=== PATIENT | male | born 1965 | race Caucasian/White ===

== ENCOUNTER 2022-09-06 09:42 | Outpatient (REF) | payer MEDICAID, SELFPAY ==
[2022-09-06 10:34] LABS: MANUAL DIFF FLAG NO
[2022-09-06 10:46] LABS: Basophils Percent Auto 0.5 % (0-2); Eosinophils Percent Auto 0.7 % (0-4); Hematocrit 45.9 % (42.0-52.0); Hemoglobin 15.9 g/dl (14.0-18.0); Imm Gran Abs Auto 0.01 X10*3/uL (0.00-0.03); Imm Gran Pct Auto 0.2 % (0.0-0.4); Lymphocytes Absolute Auto 1.1 X10*3/uL (1.2-4.9); Lymphocytes Percent Auto 24.9 % (20-40); Mean Corpuscular HGB Conc 34.6 g/dl (31.0-36.0); Mean Corpuscular Hemoglobin 32.1 pg (27.0-33.0); Mean Corpuscular Volume 92.7 fL (80.0-98.0); Mean Platelet Volume 10.9 fL (9.4-12.4); Monocytes Absolute Auto 0.3 X10*3/uL (0.1-1.2); Monocytes Percent Auto 7.6 % (2-11); Neutrophils Absolute Auto 2.9 x10*3/uL (2.0-8.3); Neutrophils Percent Auto 66.1 % (45-73); Platelet Count 199 X10*3/uL (160-400); Red Blood Count 4.95 X10*6/uL (4.60-5.80); Red Cell Distribution Width 12.3 % (11.0-16.0); White Blood Count 4.3 X10*3/uL (4.8-10.8)
[2022-09-06 11:27] LABS: Alanine Aminotransferase 25 U/L (0-40); Albumin Level 4.3 g/dL (3.5-5.0); Alkaline Phosphatase 72 U/L (39-117); Anion Gap 12 (12-20); Aspartate Amino Transferase 17 U/L (5-37); Bilirubin Total 0.6 mg/dL (0.0-1.0); Blood Urea Nitrogen 15 mg/dL (9-16); Calcium 9.2 mg/dL (8.4-10.2); Carbon Dioxide 24 mmol/L (22-29); Chloride 110 mmol/L (96-108); Cholesterol 237 mg/dL; Estimated Glomerular Filt Rate > 60; Glucose Random 117 mg/dL (60-115); HDL Cholesterol 42 mg/dL; LDL Cholesterol Calculated 178 mg/dl; Potassium 4.5 mmol/L (3.3-5.1); Sodium 141 mmol/L (135-145); Total Protein 6.9 g/dL (6.5-8.0); Triglycerides 88 mg/dL
[2022-09-06 11:50] LABS: Prostate Specific Antigen Scr 0.91 ng/mL (<0.05-4.0); Thyroid Stimulating Hormone 1.09 uIU/mL (0.32-4.0)
== END 2022-09-06 09:43 | disposition home or self-care (01) ==
LOC: HO.10HDL 09:42
PROVIDERS: Visit Provider Internal Medicine
DX: Z00.01 Encounter for general adult medical examination with abnormal findings (principal); Z12.5 Encounter for screening for malignant neoplasm of prostate; E78.00 Pure hypercholesterolemia, unspecified; F32.2 Major depressive disorder, single episode, severe without psychotic features; F41.8 Other specified anxiety disorders; H54.61 Unqualified visual loss, right eye, normal vision left eye; I10 Essential (primary) hypertension
CPT/HCPCS: 36415; 80053; 80061; 84153; 84443; 85025

== ENCOUNTER 2023-02-27 10:47 | Outpatient (REF) | payer MEDICAID, SELFPAY ==
[2023-02-27 13:54] LABS: Estimated Average Glucose 88 mg/dL; Hemoglobin A1c % 4.7 % (<6.0)
[2023-02-27 14:12] LABS: Alanine Aminotransferase 26 U/L (0-40); Albumin Level 4.3 g/dL (3.5-5.0); Alkaline Phosphatase 57 U/L (39-117); Anion Gap 14 (12-20); Aspartate Amino Transferase 20 U/L (5-37); Bilirubin Total 0.8 mg/dL (0.0-1.0); Blood Urea Nitrogen 18 mg/dL (9-16); Calcium 9.5 mg/dL (8.4-10.2); Carbon Dioxide 25 mmol/L (22-29); Chloride 103 mmol/L (96-108); Cholesterol 144 mg/dL (<200); Estimated Glomerular Filt Rate 59; Glucose Random 117 mg/dL (60-115); HDL Cholesterol 40 mg/dL (>40); LDL Cholesterol Calculated 83 mg/dL (<100); Potassium 3.8 mmol/L (3.3-5.1); Sodium 138 mmol/L (135-145); Total Protein 7.5 g/dL (6.5-8.0); Triglycerides 107 mg/dL (<150)
== END 2023-02-27 10:48 | disposition home or self-care (01) ==
LOC: HO.10HDL 10:47
PROVIDERS: Visit Provider Internal Medicine
DX: E78.00 Pure hypercholesterolemia, unspecified (principal); F32.2 Major depressive disorder, single episode, severe without psychotic features; I10 Essential (primary) hypertension; R73.01 Impaired fasting glucose
CPT/HCPCS: 36415; 80053; 80061; 83036

== ENCOUNTER 2023-05-07 13:13 | Outpatient (AMB) | payer MEDICAID, SELFPAY ==
[2023-05-07 13:15] VITALS: BP 158/78; PULSE 86; O2SAT 99; BMI 32.1
--- NOTE | 2023-05-07 13:15 | HO.NEPHOV_ITS ---
HPI HPI Comments History of Present Illness Details Pleasant 57-year-old man with a history of anxiety and resistant hypertension. He has had hypertension for at least 5-10 years. Currently he is on 4 antihypertensive medications and the blood pressure has been difficult to control. He has been watching his blood pressure at home and this morning blood pressure was 150 2 mm Hg systolic. He was accompanied by his spouse today. According to her he snores at night. No witnessed apnea. He has no shortness of breath no chest pain. No edema. No urinary symptoms. No palpitations. No lightheadedness. He is history of smoking for almost 15 years. He quit smoking about 5 years ago. He continues to weep. No history of any alcohol abuse and he quit alcohol several years ago. No history of any illicit drug abuse. He has 1 brother with hypertension his mother has hypertension which seems to be well controlled. [facility] Medical History (Updated 05/07/23 @ 13:19 by Karl Clancy MD) High cholesterol Dyslipidemia Depression Hypertension Family History Mother Hypertension Myocardial infarct CVA (cerebral vascular accident) TIA (transient ischemic attack) Hypercholesteremia Social History (Updated 05/07/23 @ 13:25 by Nusrat Garza) Alcohol intake: former Patient Tobacco Use Status: Former Tobacco user e-Cigarette/Vaping Use: Former Use Vital Signs 05/07/23 13:15 Height 5 ft 10 in Weight 224 lb BMI 32.1 BP 158/78 H Blood Pressure Location Lt brachial Position Sitting Pulse 86 Pulse Source Pulse Oximeter Pulse Oximetry (%) 99 Oxygen Delivery Method Room Air Physical Exam Vital Signs: Last Vital Signs Pulse 86 05/07/23 13:15 BP 158/78 H 05/07/23 13:15 Pulse Ox 99 05/07/23 13:15 Oxygen Delivery Method Room Air 05/07/23 13:15 BMI result Body Mass Index 32.1 Const General: comfortable Nutritional Appearance: well nourished Orientation/consciousness: patient oriented x3 HEENT Head: No normal to inspection Mouth: moist mucous membranes Neck Neck: Yes supple and Yes no JVD Resp Auscultation: clear to auscultation bilaterally, no rales and rub present Cardio Jugular venous distension: no JVD Palpation: no palpable S3 and no palpable S4 Heart sounds: no rubs GI Palpation (GI): Soft to palpation and nontender Percussion: No Fluid wave present General: Yes no CVA tenderness Back/Spine/Pelvis Back: no CVA tenderness Skin General skin exam: no rashes or lesions noted Neuro General: patient oriented x3 Extrem General: Yes no pedal edema and No clubbing Assessment & Plan Assessment & Plan (1) Hypertension: Code(s): I10 - Essential (primary) hypertension Plan . Middle-aged man with resistant hypertension setting of anxiety. He probably has essential hypertension and he might also have a component of superimposed white coat effect. Anxiety might be playing a role Given the history of snoring I suspect he might even have underlying sleep apnea which could be playing a role in causing resistant hypertension. He has mild CKD. Recent creatinine is 1.2 with EGFR 57 mL/minute. This may be due to altered hemodynamics. Other possibility including hypertensive nephrosclerosis should be considered. Plan Check urine studies including urine for sodium and creatinine. Check renal ultrasonogram to assess echogenicity and renal sizes. Encouraged him to stand low-sodium diet. I will discontinue hydrochlorothiazide 25 mg and replace it with Aldactazide 25/25. I have asked him to start with half a tablet today and we can gradually titrate the dose while monitoring renal function potassium. If the blood pressure is still difficult to control I would consider a sleep evaluation. Orders: Orders Electrolytes Today I10 - Essential (primary) hypertension Creatinine Today I10 - Essential (primary) hypertension US renal BI Today I10 - Essential (primary) hypertension Blood Urea Nitrogen Today I10 - Essential (primary) hypertension Calcium Today I10 - Essential (primary) hypertension Total Protein Urine Random Today I10 - Essential (primary) hypertension UA and rflx microscopic Today I10 - Essential (primary) hypertension Creatinine Urine Today I10 - Essential (primary) hypertension Medications: New spironolacton-hydrochlorothiaz 25-25 mg 1 tab PO DAILY 30 tabs 1RF Coding Level of Care Code New Pt Level 4 (29830) Diagnoses Hypertension I10 Results Reviewed Nephrology Results: Hgb 15.9 g/dl (14.0-18.0) 09/06/22 WBC 4.3 X10*3/uL (4.8-10.8) L 09/06/22 Plt Count 199 X10*3/uL (160-400) 09/06/22 Sodium 138 mmol/L (135-145) 02/27/23 Potassium 3.8 mmol/L (3.3-5.1) 02/27/23 Chloride 103 mmol/L (96-108) 02/27/23 Carbon Dioxide 25 mmol/L (22-29) 02/27/23 BUN 18 mg/dL (9-16) H 02/27/23 Creatinine 1.26 mg/dL (0.5-1.4) 02/27/23 Calcium 9.5 mg/dL (8.4-10.2) 02/27/23
== END 2023-05-07 13:44 | disposition home or self-care (01) ==
PROVIDERS: PCP Internal Medicine; Visit Provider Internal Medicine Hypertension Specialist
DX: I10 Essential (primary) hypertension (principal)
CPT/HCPCS: 99204

== ENCOUNTER → 2023-05-07 13:13 | Outpatient (BNVA) | payer MEDICAID, SELFPAY | PROVIDERS: PCP Internal Medicine; Visit Provider Internal Medicine Hypertension Specialist | DX: I10 Essential (primary) hypertension (principal) | CPT/HCPCS: 99202 ==

== ENCOUNTER 2023-05-21 12:13 | Outpatient (REF) | payer MEDICAID, SELFPAY ==
[2023-05-21 13:21] LABS: Appearance Urine Clear; Color Urine Yellow; Glucose Urine UA Negative (Negative); Leukocyte Esterase Urine Negative (Negative); Nitrite Urine Negative (Negative); Urine Blood Negative (Negative); Urine Ketones Negative (Negative); Urine Protein Negative (Neg-Trace)
[2023-05-21 13:57] LABS: Anion Gap 16 (12-20); Blood Urea Nitrogen 12 mg/dL (9-16); Calcium 9.4 mg/dL (8.4-10.2); Carbon Dioxide 22 mmol/L (22-29); Chloride 100 mmol/L (96-108); Estimated Glomerular Filt Rate > 60; Potassium 3.7 mmol/L (3.3-5.1); Sodium 134 mmol/L (135-145)
[2023-05-21 14:03] LABS: Creatinine Urine 104.11 mg/dL; Total Protein Urine Random 9 mg/dL (<12)
== END 2023-05-21 12:14 | disposition home or self-care (01) ==
LOC: HO.10HDL 12:13
PROVIDERS: Visit Provider Internal Medicine Hypertension Specialist
DX: I10 Essential (primary) hypertension (principal); R94.31 Abnormal electrocardiogram [ECG] [EKG]
CPT/HCPCS: 36415; 80051; 81003; 82310; 82565; 82570; 84156; 84520; 99202

== ENCOUNTER 2023-05-21 12:25 | Outpatient (AMB) | payer MEDICAID, SELFPAY ==
--- NOTE | 2023-05-21 13:13 | A.OFFVIS_ITS ---
Intake Vital Signs 05/21/23 13:14 Height 5 ft 11 in Weight 222 lb 3.615 oz BMI 31.0 BP 154/80 H Blood Pressure Location Lt brachial Position Sitting Pulse 75 Intake Visit Reasons: NPV/Adlakha/Abnormal EKG Intake Note: NPV Behavioral Technician Required: No Accompanied by: Spouse Allergies No Known Allergies Allergy (Verified 05/21/23 13:15) Medication List - Last Reconciled 05/21/23 by Ray Tyler MD amlodipine 10 mg PO DAILY fluoxetine 40 mg PO DAILY isosorbide mononitrate ER 30 mg PO DAILY lisinopril 40 mg PO DAILY lorazepam 1 mg PO PRN metoprolol succinate ER 100 mg PO DAILY multivitamin 1 tab PO DAILY omeprazole 20 mg PO DAILY rosuvastatin 20 mg PO BEDTIME saw palmetto 160 mg PO DAILY PRN spironolacton-hydrochlorothiaz 25-25 mg 1 tab PO DAILY trazodone 50 mg PO BEDTIME PRN HPI HPI Comments History of Present Illness Details This is a cardiology consultation regarding abnormal EKG. A recent EKG had shown ST depression across the precordial leads and hence he is referred. Patient denies any history of coronary disease, myocardial infarction or c ardiomyopathy or in fact any other cardiac issues. He is apparently seen Dr. Caldwell in the past but it was many years ago. His blood pressure is difficult to control but he also has significant anxiety. Even to come to doctor's office, he apparently needs to take anxiety meds. He does not really have any anginal-type symptoms but he states that whenever his blood pressure goes up too high he can feel it in his neck and is chest/breast area feels tightness well. Otherwise, no exertional angina. No other clear-cut cardiac symptoms. [facility] Medical History (Updated 05/21/23 @ 13:22 by Ray Tyler MD) High cholesterol Dyslipidemia Depression Hypertension Family History Mother Hypertension Myocardial infarct CVA (cerebral vascular accident) TIA (transient ischemic attack) Hypercholesteremia Social History Alcohol intake: former Patient Tobacco Use Status: Former Tobacco user e-Cigarette/Vaping Use: Former Use Review of Systems Const All systems reviewed & are unremarkable except as noted in HPI and below Reports as per HPI and Reports no additional complaints Eyes Reports as per HPI and Denies no additional complaints ENT Denies no additional complaints and Reports as per HPI Card Reports as per HPI, Reports no additional complaints, Denies acrocyanosis, Denies chest pain, Denies leg edema, Denies lightheadedness, Denies palpitations and Denies dyspnea Resp Reports as per HPI, Denies no additional complaints and Denies dyspnea GI Reports as per HPI and Denies no additional complaints Reports no additional complaints and Reports as per HPI Musc Reports no additional complaints and Reports as per HPI Skin/Breast Reports system reviewed and no additional complaints, except as documented Neuro Reports no additional complaints and Reports as per HPI Psych Reports no additional complaints and Reports as per HPI Endo Reports no additional complaints, Reports as per HPI and Denies palpitations Will/Lymph Reports no additional complaints and Reports as per HPI Aller/Immun Reports no additional complaints and Reports as per HPI Physical Exam Vital Signs: Last Vital Signs Pulse 75 05/21/23 13:14 BP 154/80 H 05/21/23 13:14 BMI result Body Mass Index 31.0 Const General: comfortable and no acute distress Orientation/consciousness: patient oriented x3 HEENT Other: Unremarkable Head: Yes normal to inspection Neck Neck: Yes normal visual inspection Chest Chest palpation & inspection: normal inspection of the chest Resp Auscultation: clear to auscultation bilaterally Cardio Palpation: normal PMI Heart sounds: S1 normal heart sound present, S2 normal heart sound present, no gallops, no murmurs and no rubs GI Palpation (GI): Soft to palpation Back/Spine/Pelvis Other: unremarkable Skin General skin exam: no rashes or lesions noted Neuro General: patient oriented x3 Extrem General: Yes normal to inspection Psych Mental Status: mental status grossly normal Assessment & Plan Assessment & Plan (1) Abnormal EKG: Code(s): R94.31 - Abnormal electrocardiogram [ECG] [EKG] (2) Hypertension: Code(s): I10 - Essential (primary) hypertension Plan EKG from primary care physician's office shows sinus rhythm at 69/Min; ST depression, T inversions across anterior leads. In a prior EKG from 2020, this is seen but less prominent. Considering his history of longstanding hypertension, this could reflect LVH/strain pattern. Less likely ischemia but certainly possible. We will start with an echocardiogram and stress perfusion imaging study. Will also look for old records. To be seen in follow-up once these are completed. Discussed with significant other. Orders: Orders CA stress test Today R07.2 - Precordial pain, R94.31 - Abnormal electrocardiogram [ECG] [EKG] CA echo transthoracic complete Today I25.10 - Atherosclerotic heart disease of [place] coronary artery without angina pectoris, R94.31 - Abnormal electrocardiogram [ECG] [EKG] NM cardiolite stress test Today R07.2 - Precordial pain, R94.31 - Abnormal electrocardiogram [ECG] [EKG] Coding Level of Care Code New Pt Level 4 (96519) Diagnoses Abnormal EKG R94.31 Hypertension I10
[2023-05-21 13:14] VITALS: BP 154/80; PULSE 75; BMI 31.0
== END 2023-05-21 13:39 | disposition home or self-care (01) ==
PROVIDERS: PCP Internal Medicine; Referring Provider Internal Medicine; Visit Provider Internal Medicine
DX: R94.31 Abnormal electrocardiogram [ECG] [EKG] (principal); I10 Essential (primary) hypertension
CPT/HCPCS: 99204

== ENCOUNTER 2023-06-07 09:19 | Outpatient (REF) | payer MEDICAID, SELFPAY ==
--- NOTE | ~2023-06-07 | US_ITS ---
EXAMINATION: ULTRASOUND RENAL WITH DOPPLER CLINICAL INFORMATION: Essential (primary) hypertension. COMPARISON: None. TECHNIQUE: Real-time grayscale, color Doppler, and duplex Doppler evaluation of the kidneys and renal vasculature was performed. FINDINGS: RENAL MEASUREMENTS: Right: 11.7 x 5.3 x 5.6 cm (Sag x AP x TV) Left: 10.8 x 5.9 x 4.9 cm (Sag x AP x TV) The renal parenchyma appears normal. No hydronephrosis or nephrolithiasis. At the interpolar aspect of the right kidney, a 2.4 cm benign, simple cyst is seen. At the interpolar aspect of the left kidney, a 1.6 cm benign, simple cyst is seen. These require no imaging follow-up. DOPPLER INTERROGATION: Aorta: 96 cm/sec Right Main Renal Artery: Proximal: 141 cm/sec Mid: 121 cm/sec Distal: 67 cm/sec Left Main Renal Artery: Proximal: 117 cm/sec Mid: 156 cm/sec Distal: 68 cm/sec Renal-Aortic Ratio (RAR): Right: 1.5 Left: 1.6 Bilateral upper pole, interpolar and lower pole segmental arteriolar resistive indices are within normal limits. Bilateral upper pole, interpolar and lower pole segmental arteriolar pulse doppler waveforms are unremarkable, with uniformly rapid upstrokes and no parvus et tardus configuration. US/US renal doppler IMPRESSION: Unremarkable examination, without hemodynamically significant renal artery stenosis seen bilaterally.
== END 2023-06-07 09:20 | disposition home or self-care (01) ==
LOC: HO.HMGCX 09:19
PROVIDERS: PCP Internal Medicine; Visit Provider Internal Medicine Hypertension Specialist
DX: I10 Essential (primary) hypertension (principal)
CPT/HCPCS: 93975

== ENCOUNTER 2023-06-25 11:53 | Outpatient (AMB) | payer MEDICAID, SELFPAY ==
[2023-06-25 12:04] VITALS: BP 142/84; PULSE 63; O2SAT 96
--- NOTE | 2023-06-25 12:04 | HO.NEPHOV ---
HPI HPI Comments History of Present Illness Details Pleasant 57-year-old man with a history of anxiety and resistant hypertension. He has had hypertension for at least 5-10 years. Currently he is on 4 antihypertensive medications and the blood pressure has been difficult to control. He has been watching his blood pressure at home and this morning blood pressure was 150 2 mm Hg systolic. He was accompanied by his spouse today. According to her he snores at night. No witnessed apnea. He has no shortness of breath no chest pain. No edema. No urinary symptoms. No palpitations. No lightheadedness. He is history of smoking for almost 15 years. He quit smoking about 5 years ago. He continues to weep. No history of any alcohol abuse and he quit alcohol several years ago. No history of any illicit drug abuse. He has 1 brother with hypertension his mother has hypertension which seems to be well controlled. 06/25/23 Doing well On ALdactazide 25-25 mg QD Tolerating well PFSH Medical History (Updated 05/21/23 @ 13:22 by Ray Tyler MD) High cholesterol Dyslipidemia Depression Hypertension Family History Mother Hypertension Myocardial infarct CVA (cerebral vascular accident) TIA (transient ischemic attack) Hypercholesteremia Social History Alcohol intake: former Patient Tobacco Use Status: Former Tobacco user e-Cigarette/Vaping Use: Former Use Vital Signs 06/25/23 12:04 Height 5 ft 11 in Weight 215 lb BMI 30.0 BP 142/84 H Blood Pressure Location Rt brachial Position Sitting Pulse 63 Pulse Source Pulse Oximeter Pulse Oximetry (%) 96 Oxygen Delivery Method Room Air Physical Exam Vital Signs: Last Vital Signs Pulse 63 06/25/23 12:04 BP 142/84 H 06/25/23 12:04 Pulse Ox 96 06/25/23 12:04 Oxygen Delivery Method Room Air 06/25/23 12:04 BMI result Body Mass Index 30.0 Const General: comfortable Nutritional Appearance: well nourished Orientation/consciousness: patient oriented x3 HEENT Head: No normal to inspection Mouth: moist mucous membranes Neck Neck: Yes supple and Yes no JVD Resp Auscultation: clear to auscultation bilaterally, no rales and rub present Cardio Jugular venous distension: no JVD Palpation: no palpable S3 and no palpable S4 Heart sounds: no rubs GI Palpation (GI): Soft to palpation and nontender Percussion: No Fluid wave present General: Yes no CVA tenderness Back/Spine/Pelvis Back: no CVA tenderness Skin General skin exam: no rashes or lesions noted Neuro General: patient oriented x3 Extrem General: Yes no pedal edema and No clubbing Assessment & Plan Assessment & Plan (1) Hypertension: Code(s): I10 - Essential (primary) hypertension Plan . Middle-aged man with resistant hypertension setting of anxiety. He probably has essential hypertension and he might also have a component of superimposed white coat effect. Anxiety might be playing a role Given the history of snoring I suspect he might even have underlying sleep apnea which could be playing a role in causing resistant hypertension. He has mild CKD. Recent creatinine is 1.2 with EGFR 57 mL/minute. This may be due to altered hemodynamics. Other possibility including hypertensive nephrosclerosis should be considered. Keep Aldactazide 25/. Watch BP at home daily We might be able to taper some of his anti hypertensives over the next several weeks Watch serum sodium for now Orders: Orders Basic Metabolic Panel 4 Weeks I10 - Essential (primary) hypertension Coding Level of Care Code Est Pt Level 4 (97058) Diagnoses Hypertension I10 Results Reviewed Nephrology Results: Hgb 15.9 g/dl (14.0-18.0) 09/06/22 WBC 4.3 X10*3/uL (4.8-10.8) L 09/06/22 Plt Count 199 X10*3/uL (160-400) 09/06/22 Sodium 134 mmol/L (135-145) L 05/21/23 Potassium 3.7 mmol/L (3.3-5.1) 05/21/23 Chloride 100 mmol/L (96-108) 05/21/23 Carbon Dioxide 22 mmol/L (22-29) 05/21/23 BUN 12 mg/dL (9-16) 05/21/23 Creatinine 1.13 mg/dL (0.5-1.4) 05/21/23 Calcium 9.4 mg/dL (8.4-10.2) 05/21/23 Urine Protein Negative mg/dL (Neg-Trace) 05/21/23 Urine Creatinine 104.11 mg/dL 05/21/23 Renal US 06/07/23
== END 2023-06-25 12:25 | disposition home or self-care (01) ==
PROVIDERS: PCP Internal Medicine; Visit Provider Internal Medicine Hypertension Specialist
DX: I10 Essential (primary) hypertension (principal)
CPT/HCPCS: 99214

== ENCOUNTER → 2023-06-25 11:53 | Outpatient (BNVA) | payer MEDICAID, SELFPAY | PROVIDERS: PCP Internal Medicine; Visit Provider Internal Medicine Hypertension Specialist | DX: I10 Essential (primary) hypertension (principal) | CPT/HCPCS: 99212 ==

== ENCOUNTER → 2023-06-28 07:44 | Outpatient (REF) | payer MEDICAID, SELFPAY ==
--- NOTE | 2023-06-28 07:47 | CA_ITS ---
Transthoracic Echocardiogram Patient (Last, First, Middle): Shiraz Sandhu, Gender: Male Date of : 1965 Age: 58 Procedure Date: 06/28/2023 Procedure Type: Transthoracic Echocardiogram Location: OP Height: 177.8 cm Weight: 97.52 kg BSA: 2.15 m2 Heart Rate: 59 bpm BP: 142 / 80 mmHg Sharepoint Manager: CLAUDE Referring MD: Ray Tyler MD Human Resources Benefits Coordinator: Terell Ruiz MD Symptoms: I25.10 - Atherosclerotic heart disease of [place] coronary artery without... Study Quality: Adequate ECG Rhythm: Bradycardia Conclusions: - 1. Normal LV systolic function with LVEF of 60-65% 2. Normal cardiac valvular Dopplers 3. No gross pericardial effusion Findings Left Ventricle Normal left ventricular size, thickness, and systolic function. The visually estimated ejection fraction is between 60-65%. Spectral Doppler is indicative of a normal filling pattern. Peak GLS is -22.4%, within normal limits. Wall Motion Rest Echo Findings The basal inferior and basal inferoseptal segments are hypokinetic. All other scored wall segments showed normal motion. Right Ventricle Normal right ventricular cavity size and systolic function. Atria The left atrium is likely dilated. There is no evidence of interatrial shunt. The right atrium is normal in size. Aortic Valve Normal aortic valve structure and function. There is no aortic valve stenosis. There is no aortic valve regurgitation. Mitral Valve Normal mitral valve structure and function. There is trace mitral valve regurgitation. There is no mitral valve stenosis. Pulmonic Valve The pulmonic valve is likely normal. There is trace pulmonic valve regurgitation. Tricuspid Valve Normal tricuspid valve structure. Tricuspid regurgitation envelope is inadequate for calculation of right ventricular systolic pressure. Normal right atrial pressure. Great Vessels The pulmonary artery was not well visualized. There is no dilatation of the ascending aorta measuring 3.40 cm. Venous The inferior vena cava is normal in size and collapses greater than 50% with inspiration. Pericardium/Pleural There is no evidence of pericardial effusion. Prior Study Comparison No prior study available for comparison. Measurements 2D Linear Measurements IVSd: 0.97 0.6-0.9/0.6-1.0 cm LVIDd: 5.40 3.9-5.3/4.2-5.9 cm LVIDd Index: 2.51 2.4-3.2/2.2-3.1 cm/m2 LVIDs: 3.69 2.0-3.6 cm LVPWd: 0.92 0.7-1.1 cm LA Diam: 4.00 2.7-3.8/3.0-4.0 cm LAIDs Index: 1.86 1.5-2.3 cm/m2 LV Mass: 238.99 67-162/88-224 g LV Mass Index: 111.16 43-95/49-115 g/m2 LVOT Diam: 2.20 3.0+(-)1.3 cm 2D Systolic Function EF 4C: 63.30 >55% EF 2C: 62.50 >55% EF BiP: 62.90 >55% Mitral Valve MV Pk E: 0.60 MV PK A: 0.55 MV Decel Time: 231.00 E/A: 1.10 E'Lateral: 11.20 E'Medial: 5.11 E/E' Med: 11.70 E/E' Lat: 5.40 PHT: 68.00 MVA PHT: 3.24 Decel [place]: 2.60 Aortic Valve AoV Pk [place]: 1.41 AoV Pk Grad: 8.00 BILLY: 2.80 LVOT LVOT Pk [place]: 1.06 LVOT Mn [place]: 0.75 LVOT VTI: 0.25 LVOT Pk Grad: 4.00 LVOT Mn Grad: 3.00 LVOT Diam: 2.20 LVOT Area: 3.80 Diastolic Function MV Pk E: 0.60 MV Pk A: 0.55 E/A: 1.10 E'Medial: 5.11 E/E' Med: 11.70 E' Laterial: 11.20 E/E' Lat: 5.40 Right Ventricle TAPSE (mm): 22.80 TVS' [place]: 13.20 Tricuspid Valve RA Press: 3.00 Great Vessels Aorta Sinus of Valsalva: 3.40 2.0-3.5 cm Ao Asc: 3.40 2.1-3.4 cm Pulmonary Veins Pulm Vein S/D 1.10 Pulmonary Valve PV Pk [place]: 1.16 Peak PV Grad: 5.00 Updated in Other Vendor System with Status of Final Terell Ruiz MD electronically signed on 06/29/2023 12:36:32 PM with status of Final
== END ==
LOC: HO.CARD 07:44
PROVIDERS: PCP Internal Medicine; Visit Provider Internal Medicine
DX: I25.10 Atherosclerotic heart disease of native coronary artery without angina pectoris (principal); R94.31 Abnormal electrocardiogram [ECG] [EKG]
CPT/HCPCS: 93306; 93356

== ENCOUNTER → 2023-06-28 07:47 | Outpatient (BNV) | payer MEDICAID, SELFPAY | PROVIDERS: PCP Internal Medicine; Visit Provider Internal Medicine Cardiovascular Disease | DX: I25.10 Atherosclerotic heart disease of native coronary artery without angina pectoris (principal); R94.31 Abnormal electrocardiogram [ECG] [EKG] | CPT/HCPCS: 93306; 93356 ==

== ENCOUNTER → 2023-07-12 08:03 | Outpatient (REF) | payer MEDICAID, SELFPAY ==
--- NOTE | ~2023-07-12 | NM_ITS ---
EXERCISE MYOCARDIAL PERFUSION STUDY INDICATION: Abnormal EKG, assess for coronary disease and ischemia TECHNIQUE: The patient was brought in for an exercise perfusion study on 07/12/2023. Patient performed exercise as per Quinn protocol and was injected 35 mCi of sestamibi once target heart rate was achieved. Images were obtained using the SPECT gamma camera interlaced with the gating device. Images were obtained in supine position. Resting perfusion study was performed on 07/13/2023. Patient was administered 35 mCi of sestamibi intravenously at rest. Images were then obtained in supine position. Images were processed with the software and compared side to side in short axis, horizontal long axis and vertical long axis views. Total DLP 95mGy-cm. FINDINGS: Raw images were reviewed. The stress perfusion study showed diminished tracer uptake along the inferior wall. That improves with CT attenuation correction suggestive of diaphragmatic attenuation artifact. The gated study shows normal LV systolic function with calculated LVEF of 72%. LV cavity is normal in size. The gated study shows normal wall thickening and contraction of segments. Resting study shows no significant perfusion abnormality. Gating at rest reveals normal wall motion with ejection fraction at 62%. The findings are consistent with no clear reversible or fixed perfusion abnormality. NM/NM cardiolite stress test IMPRESSION: 1. Myocardial perfusion imaging study shows likely normal myocardial perfusion. 2. Gated LVEF is 72% during stress and 62% during rest. 3. Transient ischemic dilatation not present. EKG component of the test reported separately.
--- NOTE | 2023-07-12 08:06 | CA_ITS ---
Acquisition Time: 2023-07-12 08:20:56 Total Exercise Time: 00:07:45 Test Indications: ABN EKG Medications: SEE H Protocol: [place] Max HR: 136 BPM 83% of Pred: 162 BPM Max BP: 158/082 mmHG Max Work Load: 9.5 METS Exercise stress test exercise 7 min 45 sec of [place] protoclol stage 3 manual increased achieving 83% MPHR, with moderate SOB, no chest discomfort. without arrhythmias, with normotensive response to exericse, with downsloping leads 1, 2, 3, aVF, V2-V6, upsloping in aVR and V1.Breathing returned to baseline. Nuclear images pending. Test reviewed with Dr. Tyler. Referred By: Ray Tyler Overread By: Nayeli Gould
== END ==
LOC: HO.CARD 08:03
PROVIDERS: PCP Internal Medicine; Visit Provider Internal Medicine
DX: R07.2 Precordial pain (principal); R94.31 Abnormal electrocardiogram [ECG] [EKG]
CPT/HCPCS: 78452; 93017; A9500

== ENCOUNTER → 2023-07-12 08:06 | Outpatient (BNV) | payer MEDICAID, SELFPAY | PROVIDERS: PCP Internal Medicine; Visit Provider Nurse Practitioner | DX: R94.31 Abnormal electrocardiogram [ECG] [EKG] (principal) | CPT/HCPCS: 78452; 93016; 93018 ==

== ENCOUNTER 2023-07-16 12:55 | Outpatient (AMB) | payer MEDICAID, SELFPAY ==
[2023-07-16 13:03] VITALS: BP 126/70; PULSE 54; BMI 30.4
--- NOTE | 2023-07-16 13:03 | MHC.OFFVIS ---
Intake Vital Signs 07/16/23 13:03 Height 5 ft 11 in Weight 217 lb 13.067 oz BMI 30.4 BP 126/70 Blood Pressure Location Lt brachial Position Sitting Pulse 54 Intake Visit Reasons: 2 mth f/up HS mibi/ Intake Note: pt its here for 2 mnth/ mibi/ pt states that he its doing fine. District Or District Office Director Required: No Accompanied by: Spouse Allergies No Known Allergies Allergy (Verified 06/25/23 12:07) Medication List - Last Reconciled 07/16/23 by Kaur Grover NP-C amlodipine 10 mg PO DAILY fluoxetine 80 mg PO DAILY isosorbide mononitrate ER 30 mg PO DAILY lisinopril 40 mg PO DAILY lorazepam 1 mg PO PRN metoprolol succinate ER 100 mg PO DAILY multivitamin 1 tab PO DAILY omeprazole 20 mg PO DAILY rosuvastatin 20 mg PO BEDTIME saw palmetto 160 mg PO DAILY PRN spironolacton-hydrochlorothiaz 25-25 mg 1 tab PO DAILY trazodone 50 mg PO BEDTIME PRN HPI 2 mth f/up HS mibi/ HPI Details Shiraz is a 58-year-old male with past medical history of hypertension, hyperlipidemia, anxiety, abnormal EKG who recently underwent echocardiogram and stress test and now presents for follow-up. Today he reports that he has been feeling good overall. He denies any chest discomfort at rest or with activity. He denies shortness of breath, palpitations, lightheadedness, presyncope, syncope, PND, orthopnea or edema. Does have anxiety prior to coming to office visits and needs to premedicate. He states his blood pressure has been much better controlled after recent medication adjustments. He tolerates normal ADLs, walks routinely and able to climb stairs without difficulty. is present. [facility], LATER [facility] Medical History High cholesterol Dyslipidemia Depression Hypertension Family History Mother Hypertension Myocardial infarct CVA (cerebral vascular accident) TIA (transient ischemic attack) Hypercholesteremia Social History Alcohol intake: former Patient Tobacco Use Status: Former Tobacco user e-Cigarette/Vaping Use: Former Use Review of Systems Const All systems reviewed & are unremarkable except as noted in HPI and below Denies chills, Denies fatigue, Denies fever(s), Denies frequent falls, Denies weakness, Denies weight gain and Denies weight loss ENT Denies dizziness Card Details: can feel upper chest tightness when his BP is elevate Denies chest pain, Denies leg edema, Denies lightheadedness, Denies palpitations, Denies dyspnea and Denies dyspnea on exertion Resp Denies cough, Denies dyspnea and Denies dyspnea on exertion GI Denies hematochezia Musc Denies abnormal gait, Denies muscle weakness, Denies numbness, Denies radiating pain into limb and Denies tingling Neuro Denies abnormal gait, Denies dizziness, Denies frequent falls, Denies numbness, Denies tingling and Denies weakness Endo Denies fatigue and Denies palpitations Physical Exam Vital Signs: Last Vital Signs Pulse 54 07/16/23 13:03 BP 126/70 07/16/23 13:03 BMI result Body Mass Index 30.4 Const General: cooperative, healthy appearing, comfortable and no acute distress Orientation/consciousness: patient oriented x3 Neck Neck: Yes normal visual inspection and Yes no JVD Resp Effort & Inspection: normal respiratory effort Auscultation: clear to auscultation bilaterally, no crackles, no rales, no rhonchi and no wheezes Cardio Jugular venous distension: no JVD Rate: regular rate Rhythm: regular rhythm Heart sounds: S1 normal heart sound present, S2 normal heart sound present, no murmurs and no rubs Neuro General: patient oriented x3 Extrem General: Yes normal to inspection, No no pedal edema and No calf tenderness Psych Appearance: grossly normal Mental Status: mental status grossly normal Speech and movement: Normal speech and movement present Office Procedures EKG Details: Today, read by me, sinus bradycardia, ST and T-wave abnormality V2, V3, similar to prior EKG, rate 54, QTC 455 millisecond [id number], Complete Assessment & Plan Assessment & Plan (1) Abnormal EKG: Code(s): R94.31 - Abnormal electrocardiogram [ECG] [EKG] Plan: Patient has abnormal findings on his EKG which are not new. His EKG shows slight ST depression with downsloping in V2 and V3. It was thought this may be related to hypertension and possibly LVH. He has no cardiac history but does have cardiac risk factors of hypertension and hyperlipidemia. He underwent an echocardiogram on 06/28/2023 showing EF 60-65%, normal valves, basal inferior and basal inferior septal hypokinetic. A exercise nuclear stress test done on 07/12/2023 with good exercise tolerance, no chest discomfort, EKG abnormalities more prominent during exercise with normal myocardial perfusion imaging. Today he denies any anginal sounding symptoms. With his echo wall motion abnormality and abnormal EKG tracings will further evaluate with a CTA of the coronary arteries. Rationale for this test reviewed with him and he is agreeable to proceed. He denies having claustrophobia, just anxiety. He will premedicate prior to his testing. Continue metoprolol. His isosorbide is most likely use for his hypertension. Cardiology follow-up 3 months, sooner if needed. Emergency care if ever needed for concerning symptoms. (2) Abnormal echocardiography findings without diagnosis: Code(s): R93.1 - Abnormal findings on diagnostic imaging of heart and coronary circulation Plan: Wall motion abnormality seen on echocardiogram. (3) Hypertension: Code(s): I10 - Essential (primary) hypertension Plan: History of hypertension. Previously had been uncontrolled. Now following with Nephrology and he states it has been much better controlled on his current med regime. Blood pressure in the normal range today. Continue amlodipine, isosorbide, lisinopril, metoprolol and Aldactone/hydrochlorothiazide combination. Plan Time spent on chart review, documentation, interview and assessment Orders: Orders Basic Metabolic Panel Today I10 - Essential (primary) hypertension CT Cardiac Coronary Angio Today R93.1 - Abnormal findings on diagnostic imaging of heart and coronary circulation, R94.31 - Abnormal electrocardiogram [ECG] [EKG] Coding Level of Care Code Est Pt Level 3 (24395) Diagnoses Abnormal EKG R94.31 Abnormal echocardiography findings without diagnosis R93.1 Hypertension I10 CPT Codes EKG - CPT: [id number], Complete ([id number]) Time Spent (min) 24
== END 2023-07-16 13:44 | disposition home or self-care (01) ==
PROVIDERS: PCP Internal Medicine; Visit Provider Nurse Practitioner Family
DX: R94.31 Abnormal electrocardiogram [ECG] [EKG] (principal); R93.1 Abnormal findings on diagnostic imaging of heart and coronary circulation; I10 Essential (primary) hypertension
CPT/HCPCS: 93010; 99213

== ENCOUNTER → 2023-07-16 12:55 | Outpatient (BNVA) | payer MEDICAID, SELFPAY | PROVIDERS: PCP Internal Medicine; Visit Provider Nurse Practitioner Family | DX: R94.31 Abnormal electrocardiogram [ECG] [EKG] (principal); R93.1 Abnormal findings on diagnostic imaging of heart and coronary circulation; I10 Essential (primary) hypertension | CPT/HCPCS: 93005; 99212 ==

== ENCOUNTER 2023-07-24 14:08 | Outpatient (REF) | payer MEDICAID, SELFPAY ==
[2023-07-24 15:25] LABS: Anion Gap 13 (12-20); Blood Urea Nitrogen 23 mg/dL (9-16); Calcium 9.8 mg/dL (8.4-10.2); Carbon Dioxide 23 mmol/L (22-29); Chloride 109 mmol/L (96-108); Estimated Glomerular Filt Rate > 60; Glucose Random 95 mg/dL (60-115); Potassium 4.5 mmol/L (3.3-5.1); Sodium 140 mmol/L (135-145)
== END 2023-07-24 14:09 | disposition home or self-care (01) ==
LOC: HO.LAB 14:08
PROVIDERS: PCP Internal Medicine; Visit Provider Internal Medicine Hypertension Specialist
DX: I10 Essential (primary) hypertension (principal)
CPT/HCPCS: 36415; 80048

== ENCOUNTER 2023-07-30 11:54 | Outpatient (AMB) | payer MEDICAID, SELFPAY ==
--- NOTE | 2023-07-30 12:16 | HO.NEPHOV ---
HPI HPI Comments History of Present Illness Details Pleasant 57-year-old man with a history of anxiety and resistant hypertension. He has had hypertension for at least 5-10 years. Currently he is on 4 antihypertensive medications and the blood pressure has been difficult to control. He has been watching his blood pressure at home and this morning blood pressure was 150 2 mm Hg systolic. He was accompanied by his spouse today. According to her he snores at night. No witnessed apnea. He has no shortness of breath no chest pain. No edema. No urinary symptoms. No palpitations. No lightheadedness. He is history of smoking for almost 15 years. He quit smoking about 5 years ago. He continues to weep. No history of any alcohol abuse and he quit alcohol several years ago. No history of any illicit drug abuse. He has 1 brother with hypertension his mother has hypertension which seems to be well controlled. 06/25/23 Doing well On ALdactazide 25-25 mg QD Tolerating well 07/30/23 Home BP were excellent. Lowest reading was 107/71 He had few episodes of lightheadedness. [facility] Medical History High cholesterol Dyslipidemia Depression Hypertension Family History Mother Hypertension Myocardial infarct CVA (cerebral vascular accident) TIA (transient ischemic attack) Hypercholesteremia Social History Alcohol intake: former Patient Tobacco Use Status: Former Tobacco user e-Cigarette/Vaping Use: Former Use Vital Signs 07/30/23 12:18 Height 5 ft 11 in Weight 215 lb BMI 30.0 BP 122/70 Blood Pressure Location Rt brachial Pulse 62 Pulse Source Pulse Oximeter Pulse Oximetry (%) 96 Oxygen Delivery Method Room Air Physical Exam Vital Signs: Last Vital Signs Pulse 62 07/30/23 12:18 BP 122/70 07/30/23 12:18 Pulse Ox 96 07/30/23 12:18 Oxygen Delivery Method Room Air 07/30/23 12:18 BMI result Body Mass Index 30.0 Const General: comfortable Nutritional Appearance: well nourished Orientation/consciousness: patient oriented x3 HEENT Head: No normal to inspection Mouth: moist mucous membranes Neck Neck: Yes supple and Yes no JVD Resp Auscultation: clear to auscultation bilaterally, no rales and rub present Cardio Jugular venous distension: no JVD Palpation: no palpable S3 and no palpable S4 Heart sounds: no rubs GI Palpation (GI): Soft to palpation and nontender Percussion: No Fluid wave present General: Yes no CVA tenderness Back/Spine/Pelvis Back: no CVA tenderness Skin General skin exam: no rashes or lesions noted Neuro General: patient oriented x3 Extrem General: Yes no pedal edema and No clubbing Assessment & Plan Assessment & Plan (1) Hypertension: Code(s): I10 - Essential (primary) hypertension Plan . Middle-aged man with resistant hypertension setting of anxiety. He probably has essential hypertension and he might also have a component of superimposed white coat effect. Anxiety might be playing a role Given the history of snoring I suspect he might even have underlying sleep apnea which could be playing a role in causing resistant hypertension. He has mild CKD. Recent creatinine is 1.2 with EGFR 57 mL/minute. This may be due to altered hemodynamics. Other possibility including hypertensive nephrosclerosis should be considered. Keep Aldactazide 25/25. Watch BP at home daily We might be able to taper some of his anti hypertensives over the next several weeks Watch serum sodium for now 07/30/23 Based on home blood pressure readings I will decrease lisinopril from 40 mg down to 30 mg a day. Continue same dose of Aldactazide and amlodipine. Encouraged him to keep monitoring his blood pressure at home. Based on home blood pressure readings or if he has any symptoms of lightheadedness I will further lower lisinopril down to 20 mg. Medications: Changed From lisinopril 40 mg PO DAILY To lisinopril 30 mg PO DAILY 30 tabs 2RF Coding Level of Care Code Est Pt Level 4 (61267) Diagnoses Hypertension I10 Results Reviewed Nephrology Results: Sodium 140 mmol/L (135-145) 07/24/23 Potassium 4.5 mmol/L (3.3-5.1) 07/24/23 Chloride 109 mmol/L (96-108) H 07/24/23 Carbon Dioxide 23 mmol/L (22-29) 07/24/23 BUN 23 mg/dL (9-16) H 07/24/23 Creatinine 1.06 mg/dL (0.5-1.4) 07/24/23 Calcium 9.8 mg/dL (8.4-10.2) 07/24/23 Urine Protein Negative mg/dL (Neg-Trace) 05/21/23 Urine Creatinine 104.11 mg/dL 05/21/23 Renal US 06/07/23
[2023-07-30 12:18] VITALS: BP 122/70; PULSE 62; O2SAT 96
== END 2023-07-30 12:33 | disposition home or self-care (01) ==
PROVIDERS: PCP Internal Medicine; Visit Provider Internal Medicine Hypertension Specialist
DX: I10 Essential (primary) hypertension (principal)
CPT/HCPCS: 99214

== ENCOUNTER → 2023-07-30 11:54 | Outpatient (BNVA) | payer MEDICAID, SELFPAY | PROVIDERS: PCP Internal Medicine; Visit Provider Internal Medicine Hypertension Specialist | DX: I10 Essential (primary) hypertension (principal) | CPT/HCPCS: 99212 ==

== ENCOUNTER 2023-08-29 09:46 | Outpatient (REF) | payer MEDICAID, SELFPAY ==
[2023-08-29 11:53] LABS: Alanine Aminotransferase 34 U/L (0-40); Albumin Level 4.1 g/dL (3.5-5.0); Alkaline Phosphatase 70 U/L (39-117); Anion Gap 14 (12-20); Aspartate Amino Transferase 17 U/L (5-37); Bilirubin Total 0.3 mg/dL (0.0-1.0); Blood Urea Nitrogen 19 mg/dL (9-16); Calcium 9.4 mg/dL (8.4-10.2); Carbon Dioxide 21 mmol/L (22-29); Chloride 109 mmol/L (96-108); Cholesterol 150 mg/dL (<200); Estimated Glomerular Filt Rate 59; Glucose Random 111 mg/dL (60-115); HDL Cholesterol 45 mg/dL (>40); LDL Cholesterol Calculated 91 mg/dL (<100); Potassium 4.4 mmol/L (3.3-5.1); Sodium 140 mmol/L (135-145); Triglycerides 73 mg/dL (<150)
[2023-08-29 12:08] LABS: Prostate Specific Antigen Scr 0.52 ng/mL (<0.05-4.0)
== END 2023-08-29 09:47 | disposition home or self-care (01) ==
LOC: HO.WFDLDS 09:46
PROVIDERS: Visit Provider Internal Medicine
DX: E78.00 Pure hypercholesterolemia, unspecified (principal); I10 Essential (primary) hypertension; N40.0 Benign prostatic hyperplasia without lower urinary tract symptoms; Z72.0 Tobacco use
CPT/HCPCS: 36415; 80053; 80061; 84153

== ENCOUNTER 2023-09-24 11:31 | Outpatient (AMB) | payer MEDICAID, SELFPAY ==
[2023-09-24 11:32] VITALS: BP 108/58; PULSE 52; O2SAT 97; BMI 29.1
--- NOTE | 2023-09-24 11:32 | HO.NEPHOV_ITS ---
Vital Signs 09/24/23 11:32 Height 5 ft 11 in Weight 209 lb BMI 29.1 BP 108/58 L Blood Pressure Location Lt brachial Position Sitting Pulse 52 Pulse Source Pulse Oximeter Pulse Oximetry (%) 97 Oxygen Delivery Method Room Air Intake Visit Reasons: 6-8 wks follow up/ Confirmed Client Services Assistant Required: No Accompanied by: Spouse Allergies No Known Allergies Allergy (Verified 09/24/23 11:33) HPI Comments Details: Pleasant 57-year-old man with a history of anxiety and resistant hypertension. He has had hypertension for at least 5-10 years. Currently he is on 4 antihypertensive medications and the blood pressure has been difficult to control. He has been watching his blood pressure at home and this morning blood pressure was 150 2 mm Hg systolic. He was accompanied by his spouse today. According to her he snores at night. No witnessed apnea. He has no shortness of breath no chest pain. No edema. No urinary symptoms. No palpitations. No lightheadedness. He is history of smoking for almost 15 years. He quit smoking about 5 years ago. He continues to weep. No history of any alcohol abuse and he quit alcohol several years ago. No history of any illicit drug abuse. He has 1 brother with hypertension his mother has hypertension which seems to be well controlled. 06/25/23 Doing well On ALdactazide 25-25 mg QD Tolerating well 07/30/23 Home BP were excellent. Lowest reading was 107/71 He had few episodes of lightheadedness. 09/23 Still has some low blood pressure readings at home. Mild increase in serum creatinine to 1.26 [facility] Medical History High cholesterol Dyslipidemia Depression Hypertension Family History Mother Hypertension Myocardial infarct CVA (cerebral vascular accident) TIA (transient ischemic attack) Hypercholesteremia Social History Alcohol intake: former Patient Tobacco Use Status: Former Tobacco user e-Cigarette/Vaping Use: Former Use Physical Exam Vital Signs: Last Vital Signs Pulse 52 09/24/23 11:32 BP 108/58 L 09/24/23 11:32 Pulse Ox 97 09/24/23 11:32 Oxygen Delivery Method Room Air 09/24/23 11:32 BMI result Body Mass Index 29.1 Const General: comfortable Nutritional Appearance: well nourished Orientation/consciousness: patient oriented x3 HEENT Head: No normal to inspection Mouth: moist mucous membranes Neck Neck: Yes supple and Yes no JVD Resp Auscultation: clear to auscultation bilaterally, no rales and rub present Cardio Jugular venous distension: no JVD Palpation: no palpable S3 and no palpable S4 Heart sounds: no rubs GI Palpation (GI): Soft to palpation and nontender Percussion: No Fluid wave present General: Yes no CVA tenderness Back/Spine/Pelvis Back: no CVA tenderness Skin General skin exam: no rashes or lesions noted Neuro General: patient oriented x3 Extrem General: Yes no pedal edema and No clubbing Results Reviewed Nephrology Results: Sodium 140 mmol/L (135-145) 08/29/23 Potassium 4.4 mmol/L (3.3-5.1) 08/29/23 Chloride 109 mmol/L (96-108) H 08/29/23 Carbon Dioxide 21 mmol/L (22-29) L 08/29/23 BUN 19 mg/dL (9-16) H 08/29/23 Creatinine 1.26 mg/dL (0.5-1.4) 08/29/23 Calcium 9.4 mg/dL (8.4-10.2) 08/29/23 Renal US 06/07/23 Assessment & Plan Assessment & Plan (1) Hypertension: Code(s): I10 - Essential (primary) hypertension Category: Medical Plan . Middle-aged man with resistant hypertension setting of anxiety. He probably has essential hypertension and he might also have a component of superimposed white coat effect. Anxiety might be playing a role Given the history of snoring I suspect he might even have underlying sleep apnea which could be playing a role in causing resistant hypertension. He has mild CKD. Recent creatinine is 1.2 with EGFR 57 mL/minute. This may be due to altered hemodynamics. Other possibility including hypertensive nephrosclerosis should be considered. Keep Aldactazide 25/25. Watch BP at home daily We might be able to taper some of his anti hypertensives over the next several weeks Watch serum sodium for now 07/30/23 Based on home blood pressure readings I will decrease lisinopril from 40 mg down to 30 mg a day. Continue same dose of Aldactazide and amlodipine. Encouraged him to keep monitoring his blood pressure at home. Based on home blood pressure readings or if he has any symptoms of lightheadedness I will further lower lisinopril down to 20 mg. 09/24/23 Blood pressure is well controlled in fact he has few low readings with lightheadedness. Therefore I will decrease lisinopril from 30 mg down to 10 mg a day. Recheck renal panel in next few weeks. Encouraged him to keep monitoring blood pressure at home Orders: Orders Basic Metabolic Panel Today I10 - Essential (primary) hypertension Medications: Changed From lisinopril 30 mg PO DAILY 30 tabs 2RF To lisinopril 10 mg PO DAILY 30 tabs 2RF Coding Level of Care Code Est Pt Level 3 (03719) Diagnoses Hypertension I10
== END 2023-09-24 11:45 | disposition home or self-care (01) ==
PROVIDERS: PCP Internal Medicine; Visit Provider Internal Medicine Hypertension Specialist
DX: I10 Essential (primary) hypertension (principal)
CPT/HCPCS: 99213

== ENCOUNTER → 2023-09-24 11:31 | Outpatient (BNVA) | payer MEDICAID, SELFPAY | PROVIDERS: PCP Internal Medicine; Visit Provider Internal Medicine Hypertension Specialist | DX: I1A.0 Resistant hypertension (principal); F41.9 Anxiety disorder, unspecified | CPT/HCPCS: 99212 ==

== ENCOUNTER 2023-10-16 11:27 | Outpatient (REF) | payer MEDICAID, SELFPAY ==
[2023-10-16 14:25] LABS: Anion Gap 13 (12-20); Blood Urea Nitrogen 27 mg/dL (9-16); Calcium 9.8 mg/dL (8.4-10.2); Carbon Dioxide 21 mmol/L (22-29); Chloride 108 mmol/L (96-108); Estimated Glomerular Filt Rate > 60; Glucose Random 110 mg/dL (60-115); Potassium 4.2 mmol/L (3.3-5.1); Sodium 138 mmol/L (135-145)
== END 2023-10-16 11:28 | disposition home or self-care (01) ==
LOC: HO.WFDLDS 11:27
PROVIDERS: Nurse Practitioner Family; Visit Provider Internal Medicine Hypertension Specialist
DX: I10 Essential (primary) hypertension (principal)
CPT/HCPCS: 36415; 80048

== ENCOUNTER 2023-10-22 11:26 | Outpatient (AMB) | payer MEDICAID, SELFPAY ==
[2023-10-22 11:30] VITALS: BP 120/78; PULSE 52; O2SAT 96; BMI 29.6
--- NOTE | 2023-10-22 11:30 | HO.NEPHOV ---
Vital Signs 10/22/23 11:30 Height 5 ft 11 in Weight 212 lb BMI 29.6 BP 120/78 Blood Pressure Location Lt brachial Position Sitting Pulse 52 Pulse Source Pulse Oximeter Pulse Oximetry (%) 96 Oxygen Delivery Method Room Air Intake Visit Reasons: Hypertension/ 4-5 months fu/ Conf Cow Buyer Required: No Accompanied by: Spouse Allergies No Known Allergies Allergy (Verified 10/22/23 11:32) Medication List - Last Reconciled 10/22/23 by Karl Clancy MD amlodipine 10 mg PO DAILY aripiprazole 7.5 mg PO DAILY fluoxetine 80 mg PO DAILY isosorbide mononitrate ER 30 mg PO DAILY lisinopril 10 mg PO DAILY lorazepam 1 mg PO PRN metoprolol succinate ER 100 mg PO DAILY multivitamin 1 tab PO DAILY omeprazole 20 mg PO DAILY rosuvastatin 20 mg PO BEDTIME saw palmetto 160 mg PO DAILY PRN spironolacton-hydrochlorothiaz 25-25 mg 1 tab PO DAILY trazodone 50 mg PO BEDTIME PRN HPI Comments Details: Pleasant 57-year-old man with a history of anxiety and resistant hypertension. He has had hypertension for at least 5-10 years. Currently he is on 4 antihypertensive medications and the blood pressure has been difficult to control. He has been watching his blood pressure at home and this morning blood pressure was 150 2 mm Hg systolic. He was accompanied by his spouse today. According to her he snores at night. No witnessed apnea. He has no shortness of breath no chest pain. No edema. No urinary symptoms. No palpitations. No lightheadedness. He is history of smoking for almost 15 years. He quit smoking about 5 years ago. He continues to weep. No history of any alcohol abuse and he quit alcohol several years ago. No history of any illicit drug abuse. He has 1 brother with hypertension his mother has hypertension which seems to be well controlled. 06/25/23 Doing well On ALdactazide 25-25 mg QD Tolerating well 07/30/23 Home BP were e/xcellent. Lowest reading was 107/71 He had few episodes of lightheadedness. 09/24/23; Still has some low blood pressure readings at home. Mild increase in serum creatinine to 1.26 10/22/23: Doing well. Home BP excellent No lightheadedness [facility] Medical History High cholesterol Dyslipidemia Depression Hypertension Family History Mother Hypertension Myocardial infarct CVA (cerebral vascular accident) TIA (transient ischemic attack) Hypercholesteremia Social History Alcohol intake: former Patient Tobacco Use Status: Former Tobacco user e-Cigarette/Vaping Use: Former Use Physical Exam Vital Signs: Last Vital Signs Pulse 52 10/22/23 11:30 BP 120/78 10/22/23 11:30 Pulse Ox 96 10/22/23 11:30 Oxygen Delivery Method Room Air 10/22/23 11:30 BMI result Body Mass Index 29.6 Const General: comfortable Nutritional Appearance: well nourished Orientation/consciousness: patient oriented x3 HEENT Head: No normal to inspection Mouth: moist mucous membranes Neck Neck: Yes supple and Yes no JVD Resp Auscultation: clear to auscultation bilaterally, no rales and rub present Cardio Jugular venous distension: no JVD Palpation: no palpable S3 and no palpable S4 Heart sounds: no rubs GI Palpation (GI): Soft to palpation and nontender Percussion: No Fluid wave present General: Yes no CVA tenderness Back/Spine/Pelvis Back: no CVA tenderness Skin General skin exam: no rashes or lesions noted Neuro General: patient oriented x3 Extrem General: Yes no pedal edema and No clubbing Results Reviewed Nephrology Results: Sodium 138 mmol/L (135-145) 10/16/23 Potassium 4.2 mmol/L (3.3-5.1) 10/16/23 Chloride 108 mmol/L (96-108) 10/16/23 Carbon Dioxide 21 mmol/L (22-29) L 10/16/23 BUN 27 mg/dL (9-16) H 10/16/23 Creatinine 1.08 mg/dL (0.5-1.4) 10/16/23 Calcium 9.8 mg/dL (8.4-10.2) 10/16/23 Assessment & Plan Assessment & Plan (1) Hypertension: Code(s): I10 - Essential (primary) hypertension Category: Medical Plan . Middle-aged man with resistant hypertension setting of anxiety. He probably has essential hypertension and he might also have a component of superimposed white coat effect. Anxiety might be playing a role Given the history of snoring I suspect he might even have underlying sleep apnea which could be playing a role in causing resistant hypertension. He has mild CKD. Recent creatinine is 1.2 with EGFR 57 mL/minute. This may be due to altered hemodynamics. Other possibility including hypertensive nephrosclerosis should be considered. Keep Aldactazide 25/25. Watch BP at home daily We might be able to taper some of his anti hypertensives over the next several weeks Watch serum sodium for now 07/30/23 Based on home blood pressure readings I will decrease lisinopril from 40 mg down to 30 mg a day. Continue same dose of Aldactazide and amlodipine. Encouraged him to keep monitoring his blood pressure at home. Based on home blood pressure readings or if he has any symptoms of lightheadedness I will further lower lisinopril down to 20 mg. 09/24/23 Blood pressure is well controlled in fact he has few low readings with lightheadedness. Therefore I will decrease lisinopril from 30 mg down to 10 mg a day. Recheck renal panel in next few weeks. Encouraged him to keep monitoring blood pressure at home 10/22/23 Keep current meds ; BP well controlled. Monitor BP at home Creatinine improved and back to baseline Mild bump was due to hypoperfusion. Orders: Orders Basic Metabolic Panel 4 Months I10 - Essential (primary) hypertension Coding Level of Care Code Est Pt Level 3 (19991) Diagnoses Hypertension I10
== END 2023-10-22 11:41 | disposition home or self-care (01) ==
PROVIDERS: PCP Internal Medicine; Visit Provider Internal Medicine Hypertension Specialist
DX: I10 Essential (primary) hypertension (principal)
CPT/HCPCS: 99213

== ENCOUNTER → 2023-10-22 11:26 | Outpatient (BNVA) | payer MEDICAID, SELFPAY | PROVIDERS: PCP Internal Medicine; Visit Provider Internal Medicine Hypertension Specialist | DX: I10 Essential (primary) hypertension (principal) | CPT/HCPCS: 99212 ==

== ENCOUNTER 2023-11-05 08:09 | Outpatient (AMB) | payer MEDICAID, SELFPAY ==
[2023-11-05 08:24] VITALS: BP 134/70; PULSE 72; BMI 29.7
--- NOTE | 2023-11-05 08:24 | MHC.OFFVIS ---
Vital Signs 11/05/23 08:24 Height 5 ft 11 in Weight 212 lb 15.465 oz BMI 29.7 BP 134/70 Blood Pressure Location Lt brachial Position Sitting Pulse 72 Pulse Source Pulse Oximeter Intake Visit Reasons: f/up cta Allergies No Known Allergies Allergy (Verified 11/05/23 08:26) Medication List - Last Reconciled 11/05/23 by Kaur Grover CHILDREN'S NURSERY ASSISTANT-C amlodipine 10 mg PO DAILY aripiprazole 7.5 mg PO DAILY fluoxetine 80 mg PO DAILY isosorbide mononitrate ER 30 mg PO DAILY lisinopril 10 mg PO DAILY lorazepam 1 mg PO PRN metoprolol succinate ER 100 mg PO DAILY multivitamin 1 tab PO DAILY omeprazole 20 mg PO DAILY rosuvastatin 20 mg PO BEDTIME saw palmetto 160 mg PO DAILY PRN spironolacton-hydrochlorothiaz 25-25 mg 1 tab PO DAILY trazodone 50 mg PO BEDTIME PRN HPI HPI f/up cta: Details: Shiraz is a 58-year-old male with past medical history of hypertension, hyperlipidemia, anxiety, abnormal EKG who recently underwent a CTA of coronary arteries and now presents for follow-up. Today he reports that he has been feeling good since last visit. He denies any chest discomfort at rest or with activity. He denies shortness of breath, palpitations, lightheadedness, presyncope, syncope, PND, orthopnea or edema. Does have anxiety prior to coming to office visits and needs to premedicate. He states his blood pressure has been much better controlled after recent medication adjustments. He tolerates normal ADLs, walks routinely and able to climb stairs without difficulty. is present. [facility] Medical History High cholesterol Dyslipidemia Depression Hypertension Family History Mother Hypertension Myocardial infarct CVA (cerebral vascular accident) TIA (transient ischemic attack) Hypercholesteremia Social History Alcohol intake: former Patient Tobacco Use Status: Former Tobacco user e-Cigarette/Vaping Use: Former Use Review of Systems Const Details: anxiety All systems reviewed & are unremarkable except as noted in HPI and below ENT Denies dizziness Card Denies chest pain, Denies chest pain at rest, Denies chest pain with activity, Denies rapid heart rate, Denies pedal edema, Denies edema, Denies leg edema, Denies lightheadedness, Denies palpitations, Denies dyspnea, Denies dyspnea on exertion and Denies orthopnea Resp Denies cough, Denies dyspnea and Denies dyspnea on exertion GI Denies hematochezia and Denies change in stool character Musc Denies abnormal gait, Denies limited range of motion, Denies muscle cramps, Denies muscle weakness, Denies numbness, Denies radiating pain into limb, Denies stiffness and Denies tingling Neuro Denies abnormal gait, Denies dizziness, Denies numbness and Denies tingling Endo Denies palpitations Physical Exam Vital Signs: BMI result Body Mass Index 29.7 Const General: cooperative, healthy appearing, comfortable and no acute distress Orientation/consciousness: patient oriented x3 Neck Neck: Yes normal visual inspection and Yes no JVD Resp Effort & Inspection: normal respiratory effort Auscultation: clear to auscultation bilaterally, no crackles, no rales, no rhonchi and no wheezes Cardio Jugular venous distension: no JVD Rate: regular rate Rhythm: regular rhythm Heart sounds: S1 normal heart sound present, S2 normal heart sound present, no murmurs and no rubs Neuro General: patient oriented x3 Extrem General: Yes normal to inspection, No no pedal edema and No calf tenderness Psych Appearance: grossly normal Mental Status: mental status grossly normal Speech and movement: Normal speech and movement present Assessment & Plan Assessment & Plan (1) Abnormal EKG: Code(s): R94.31 - Abnormal electrocardiogram [ECG] [EKG] Category: Medical Plan: Patient has abnormal findings on his EKG which are not new. His EKG shows slight ST depression with downsloping in V2 and V3. It was thought this may be related to hypertension and possibly LVH. He has no cardiac history but does have cardiac risk factors of hypertension and hyperlipidemia. He underwent an echocardiogram on 06/28/2023 showing EF 60-65%, normal valves, basal inferior and basal inferior septal hypokinetic. A exercise nuclear stress test done on 07/12/2023 with good exercise tolerance, no chest discomfort, EKG abnormalities more prominent during exercise with normal myocardial perfusion imaging. A CTA of coronary arteries was done on 10/24/2023 showing mild nonobstructive coronary artery disease, no hemodynamically significant stenosis. Test results reviewed with him in detail. Diagnosis of coronary artery disease discussed. He has no reports of anginal sounding symptoms at this time. This does not account for his EKG findings. Will start him on aspirin 81 mg daily. Labs done 08/29/2023 showed LDL 91, AST 17, ALT 34. On rosuvastatin 20 mg daily. Will increase rosuvastatin up to 40 mg daily. Need for good cholesterol control reviewed with him. [place] LDL goal will be less than 70. Will plan for repeat fasting lipid in 2 months. Signs and symptoms of angina reviewed. Continue with good blood pressure control, weight control, exercise as tolerated. Cardiology follow-up in 1 year, sooner if needed. (2) Abnormal echocardiography findings without diagnosis: Code(s): R93.1 - Abnormal findings on diagnostic imaging of heart and coronary circulation Category: Medical Plan: Wall motion abnormality seen on echocardiogram. CTA as above confirming nonobstructive disease. (3) Hypertension: Code(s): I10 - Essential (primary) hypertension Category: Medical Plan: History of hypertension. Previously had been uncontrolled. Now following with Nephrology and he states it has been much better controlled on his current med regime. Blood pressure in the normal range today. Continue amlodipine, isosorbide, lisinopril, metoprolol and Aldactone/hydrochlorothiazide combination. (4) Coronary artery disease: Comment: CTA of coronary 10/24/2023, left main normal, lad less than 25% stenosis, D1 25-49% stenosis, left circumflex mid 25-49% stenosis, RCA mid to distal 25-49% stenosis Code(s): I25.10 - Atherosclerotic heart disease of [place] coronary artery without angina pectoris Category: Medical Plan: Nonobstructive coronary artery disease. Medical management. Plan Time spent on chart review, documentation, interview and assessment Orders: Orders Liver Panel 2 Months I25.10 - Atherosclerotic heart disease of [place] coronary artery without angina pectoris Lipid Panel 2 Months I25.10 - Atherosclerotic heart disease of [place] coronary artery without angina pectoris Medications: New rosuvastatin dose increase 40 mg PO DAILY 90 tabs 3RF aspirin 81 mg PO DAILY Coding Level of Care Code Est Pt Level 3 (78545) Diagnoses Abnormal EKG R94.31 Abnormal echocardiography findings without diagnosis R93.1 Hypertension I10 Coronary artery disease I25.10 Time Spent (min) 24
== END 2023-11-05 08:50 | disposition home or self-care (01) ==
PROVIDERS: PCP Internal Medicine; Visit Provider Nurse Practitioner Family
DX: R94.31 Abnormal electrocardiogram [ECG] [EKG] (principal); R93.1 Abnormal findings on diagnostic imaging of heart and coronary circulation; I10 Essential (primary) hypertension; I25.10 Atherosclerotic heart disease of native coronary artery without angina pectoris
CPT/HCPCS: 99213

== ENCOUNTER → 2023-11-05 08:09 | Outpatient (BNVA) | payer MEDICAID, SELFPAY | PROVIDERS: PCP Internal Medicine; Visit Provider Nurse Practitioner Family | DX: R94.31 Abnormal electrocardiogram [ECG] [EKG] (principal); R93.1 Abnormal findings on diagnostic imaging of heart and coronary circulation; I25.10 Atherosclerotic heart disease of native coronary artery without angina pectoris; I10 Essential (primary) hypertension | CPT/HCPCS: 99212 ==

== ENCOUNTER 2024-01-15 10:59 | Outpatient (REF) | payer MEDICAID, SELFPAY ==
[2024-01-15 17:06] LABS: Alanine Aminotransferase 41 U/L (0-40); Albumin Level 4.1 g/dL (3.5-5.0); Alkaline Phosphatase 69 U/L (39-117); Aspartate Amino Transferase 22 U/L (5-37); Bilirubin Direct 0.1 mg/dL (0.0-0.5); Bilirubin Total 0.3 mg/dL (0.0-1.0); Cholesterol 134 mg/dL (<200); HDL Cholesterol 49 mg/dL (>40); LDL Cholesterol Calculated 74 mg/dL (<100); Total Protein 6.8 g/dL (6.5-8.0); Triglycerides 58 mg/dL (<150)
== END 2024-01-15 11:00 | disposition home or self-care (01) ==
LOC: HO.WFDLDS 10:59
PROVIDERS: Visit Provider Nurse Practitioner Family
DX: I25.10 Atherosclerotic heart disease of native coronary artery without angina pectoris (principal)
CPT/HCPCS: 36415; 80061; 80076

== ENCOUNTER 2024-02-12 15:21 | Outpatient (REF) | payer MEDICAID, SELFPAY ==
[2024-02-12 18:13] LABS: Anion Gap 13 (12-20); Blood Urea Nitrogen 15 mg/dL (9-16); Calcium 9.7 mg/dL (8.4-10.2); Carbon Dioxide 24 mmol/L (22-29); Chloride 106 mmol/L (96-108); Estimated Glomerular Filt Rate > 60; Glucose Random 95 mg/dL (60-115); Potassium 4.3 mmol/L (3.3-5.1); Sodium 139 mmol/L (135-145)
== END 2024-02-12 15:22 | disposition home or self-care (01) ==
LOC: HO.WFDLDS 15:21
PROVIDERS: Visit Provider Internal Medicine Hypertension Specialist
DX: I10 Essential (primary) hypertension (principal)
CPT/HCPCS: 36415; 80048

== ENCOUNTER 2024-02-18 09:46 | Outpatient (AMB) | payer MEDICAID, SELFPAY ==
[2024-02-18 09:50] VITALS: BP 120/62; PULSE 56; O2SAT 97; BMI 29.7
--- NOTE | 2024-02-18 09:50 | HO.NEPHOV_ITS ---
Vital Signs 02/18/24 09:50 Height 5 ft 11 in Weight 213 lb BMI 29.7 BP 120/62 Blood Pressure Location Lt brachial Position Sitting Pulse 56 Pulse Source Pulse Oximeter Pulse Oximetry (%) 97 Oxygen Delivery Method Room Air Intake Visit Reasons: Hypertension/ Conf International Marketing Specialist Required: No Accompanied by: Spouse Allergies No Known Allergies Allergy (Verified 02/18/24 09:52) Medication List - Last Reconciled 02/18/24 by Karl Clancy MD amlodipine 10 mg PO DAILY aripiprazole 7.5 mg PO DAILY aspirin 81 mg PO DAILY fluoxetine 80 mg PO DAILY isosorbide mononitrate ER 30 mg PO DAILY lisinopril 10 mg PO DAILY lorazepam 1 mg PO PRN metoprolol succinate ER 100 mg PO DAILY multivitamin 1 tab PO DAILY omeprazole 20 mg PO DAILY rosuvastatin 40 mg PO DAILY saw palmetto 160 mg PO DAILY PRN spironolacton-hydrochlorothiaz 25-25 mg 1 tab PO DAILY trazodone 50 mg PO BEDTIME PRN HPI Comments Details: Pleasant 57-year-old man with a history of anxiety and resistant hypertension. He has had hypertension for at least 5-10 years. Currently he is on 4 antihypertensive medications and the blood pressure has been difficult to control. He has been watching his blood pressure at home and this morning blood pressure was 150 2 mm Hg systolic. He was accompanied by his spouse today. According to her he snores at night. No witnessed apnea. He has no shortness of breath no chest pain. No edema. No urinary symptoms. No palpitations. No lightheadedness. He is history of smoking for almost 15 years. He quit smoking about 5 years ago. He continues to we. No history of any alcohol abuse and he quit alcohol several years ago. No history of any illicit drug abuse. He has 1 brother with hypertension his mother has hypertension which seems to be well controlled. 06/25/23 Doing well On ALdactazide 25-25 mg QD Tolerating well 07/30/23 Home BP were e/xcellent. Lowest reading was 107/71 He had few episodes of lightheadedness. 09/24/23; Still has some low blood pressure readings at home. Mild increase in serum creatinine to 1.26 10/22/23: Doing well. Home BP excellent No lightheadedness [facility] Medical History High cholesterol Dyslipidemia Depression Hypertension Family History Mother Hypertension Myocardial infarct CVA (cerebral vascular accident) TIA (transient ischemic attack) Hypercholesteremia Social History Alcohol intake: former Patient Tobacco Use Status: Former Tobacco user e-Cigarette/Vaping Use: Former Use Physical Exam Vital Signs: Last Vital Signs Pulse 56 02/18/24 09:50 BP 120/62 02/18/24 09:50 Pulse Ox 97 02/18/24 09:50 Oxygen Delivery Method Room Air 02/18/24 09:50 BMI result Body Mass Index 29.7 Results Reviewed Nephrology Results: Sodium 139 mmol/L (135-145) 02/12/24 Potassium 4.3 mmol/L (3.3-5.1) 02/12/24 Chloride 106 mmol/L (96-108) 02/12/24 Carbon Dioxide 24 mmol/L (22-29) 02/12/24 BUN 15 mg/dL (9-16) 02/12/24 Creatinine 1.11 mg/dL (0.5-1.4) 02/12/24 Calcium 9.7 mg/dL (8.4-10.2) 02/12/24 Assessment & Plan Assessment & Plan (1) Hypertension: Code(s): I10 - Essential (primary) hypertension Category: Medical Plan . Middle-aged man with resistant hypertension setting of anxiety. He probably has essential hypertension and he might also have a component of superimposed white coat effect. Anxiety might be playing a role Given the history of snoring I suspect he might even have underlying sleep apnea which could be playing a role in causing resistant hypertension. He has mild CKD. Recent creatinine is 1.2 with EGFR 57 mL/minute. This may be due to altered hemodynamics. Other possibility including hypertensive nephrosclerosis should be considered. Keep Aldactazide 25/. Watch BP at home daily We might be able to taper some of his anti hypertensives over the next several weeks Watch serum sodium for now 07/30/23 Based on home blood pressure readings I will decrease lisinopril from 40 mg down to 30 mg a day. Continue same dose of Aldactazide and amlodipine. Encouraged him to keep monitoring his blood pressure at home. Based on home blood pressure readings or if he has any symptoms of lightheadedness I will further lower lisinopril down to 20 mg. 09/24/23 Blood pressure is well controlled in fact he has few low readings with lightheadedness. Therefore I will decrease lisinopril from 30 mg down to 10 mg a day. Recheck renal panel in next few weeks. Encouraged him to keep monitoring blood pressure at home 02/18/24 Keep current meds ; BP well controlled. Monitor BP at home Creatinine improved and back to baseline Mild bump was due to hypoperfusion - resolved Orders: Orders Basic Metabolic Panel 4 Months I10 - Essential (primary) hypertension Coding Level of Care Code Est Pt Level 4 (80626) Diagnoses Hypertension I10
== END 2024-02-18 10:05 | disposition home or self-care (01) ==
PROVIDERS: PCP Internal Medicine; Visit Provider Internal Medicine Hypertension Specialist
DX: I10 Essential (primary) hypertension (principal)
CPT/HCPCS: 99214

== ENCOUNTER → 2024-02-18 09:46 | Outpatient (BNVA) | payer MEDICAID, SELFPAY | PROVIDERS: PCP Internal Medicine; Visit Provider Internal Medicine Hypertension Specialist | DX: I1A.0 Resistant hypertension (principal) | CPT/HCPCS: 99212 ==

== ENCOUNTER 2024-07-08 13:31 | Outpatient (REF) | payer MEDICAID, SELFPAY ==
[2024-07-09 09:34] LABS: Anion Gap 12 (12-20); Blood Urea Nitrogen 22 mg/dL (9-16); Calcium 9.4 mg/dL (8.4-10.2); Carbon Dioxide 25 mmol/L (22-29); Chloride 106 mmol/L (96-108); Estimated Glomerular Filt Rate > 60; Glucose Random 97 mg/dL (60-115); Potassium 4.6 mmol/L (3.3-5.1); Sodium 138 mmol/L (135-145)
== END 2024-07-08 13:32 | disposition home or self-care (01) ==
LOC: HO.WFDLDS 13:31
PROVIDERS: Visit Provider Internal Medicine Hypertension Specialist
DX: I10 Essential (primary) hypertension (principal)
CPT/HCPCS: 36415; 80048

== ENCOUNTER 2024-07-15 14:34 | Outpatient (AMB) | payer MEDICAID, SELFPAY ==
--- NOTE | 2024-07-15 14:39 | HO.NEPHOV_ITS ---
Vital Signs 07/15/24 14:40 Height 5 ft 11 in Weight 213 lb BMI 29.7 BP 140/82 H Blood Pressure Location Rt brachial Position Sitting Pulse 76 Pulse Source Pulse Oximeter Pulse Oximetry (%) 98 Oxygen Delivery Method Room Air Intake Visit Reasons: Hypertension/ Conf Guidance Services Coordinator Required: No Accompanied by: Spouse Allergies No Known Allergies Allergy (Verified 07/15/24 14:41) Medication List - Last Reconciled 07/15/24 by Karl Clancy MD amlodipine 10 mg PO DAILY aripiprazole 10 mg PO DAILY aspirin 81 mg PO DAILY buspirone 7.5 mg PO BID fluoxetine 80 mg PO DAILY isosorbide mononitrate ER 30 mg PO DAILY lisinopril 10 mg PO DAILY lorazepam 1 mg PO PRN melatonin 5 mg PO DAILY metoprolol succinate ER 100 mg PO DAILY multivitamin 1 tab PO DAILY omeprazole 20 mg PO DAILY rosuvastatin 40 mg PO DAILY saw palmetto 160 mg PO DAILY PRN spironolacton-hydrochlorothiaz 25-25 mg 1 tab PO DAILY trazodone 50 mg PO BEDTIME PRN HPI Comments Details: Pleasant 57-year-old man with a history of anxiety and resistant hypertension. He has had hypertension for at least 5-10 years. Currently he is on 4 antihypertensive medications and the blood pressure has been difficult to control. He has been watching his blood pressure at home and this morning blood pressure was 150 2 mm Hg systolic. He was accompanied by his spouse today. According to her he snores at night. No witnessed apnea. He has no shortness of breath no chest pain. No edema. No urinary symptoms. No palpitations. No lightheadedness. He is history of smoking for almost 15 years. He quit smoking about 5 years ago. He continues to weep. No history of any alcohol abuse and he quit alcohol several years ago. No history of any illicit drug abuse. He has 1 brother with hypertension his mother has hypertension which seems to be well controlled. 06/25/23; Doing well ; On ALdactazide 25-25 mg QD ;Tolerating well 07/30/23 ;Home BP were e/xcellent. Lowest reading was 107/71 ;He had few episodes of lightheadedness. 09/24/23; Still has some low blood pressure readings at home. Mild increase in serum creatinine to 1.26 10/22/23: Doing well. Home BP excellent ;No lightheadedness. 07/15/24 Home BP marginally elevated- around 140s PFSH Medical History High cholesterol Dyslipidemia Depression Hypertension Family History Mother Hypertension Myocardial infarct CVA (cerebral vascular accident) TIA (transient ischemic attack) Hypercholesteremia Social History Alcohol intake: former Patient Tobacco Use Status: Former Tobacco user e-Cigarette/Vaping Use: Former Use Physical Exam Vital Signs: Last Vital Signs Pulse 76 07/15/24 14:40 BP 140/82 H 07/15/24 14:40 Pulse Ox 98 07/15/24 14:40 Oxygen Delivery Method Room Air 07/15/24 14:40 BMI result Body Mass Index 29.7 142/80 No orthostasis Results Reviewed Nephrology Results: Sodium 138 mmol/L (135-145) 07/08/24 Potassium 4.6 mmol/L (3.3-5.1) 07/08/24 Chloride 106 mmol/L (96-108) 07/08/24 Carbon Dioxide 25 mmol/L (22-29) 07/08/24 BUN 22 mg/dL (9-16) H 07/08/24 Creatinine 1.17 mg/dL (0.5-1.4) 07/08/24 Calcium 9.4 mg/dL (8.4-10.2) 07/08/24 Assessment & Plan Assessment & Plan (1) Hypertension: Code(s): I10 - Essential (primary) hypertension Category: Medical Plan . Middle-aged man with resistant hypertension setting of anxiety. He probably has essential hypertension and he might also have a component of superimposed white coat effect. Anxiety might be playing a role Given the history of snoring I suspect he might even have underlying sleep apnea which could be playing a role in causing resistant hypertension. He has mild CKD. Recent creatinine is 1.2 with EGFR 57 mL/minute. This may be due to altered hemodynamics. Other possibility including hypertensive nephrosclerosis should be considered. Keep Aldactazide . Watch BP at home daily; We might be able to taper some of his anti hypertensives over the next several weeks ;Watch serum sodium for now 07/30/23 Based on home blood pressure readings I will decrease lisinopril from 40 mg down to 30 mg a day. Continue same dose of Aldactazide and amlodipine. Encouraged him to keep monitoring his blood pressure at home. Based on home blood pressure readings or if he has any symptoms of lightheadedness I will further lower lisinopril down to 20 mg. 09/24/23 Blood pressure is well controlled in fact he has few low readings with lightheadedness. Therefore I will decrease lisinopril from 30 mg down to 10 mg a day. Recheck renal panel in next few weeks.Encouraged him to keep monitoring blood pressure at home 02/18/24 Keep current meds ; BP well controlled. Monitor BP at home; Creatinine improved and back to baseline Mild bump was due to hypoperfusion - resolved 07/15/24 Increase Lisinopril to 10 mg BID Medications: Changed From lisinopril 10 mg PO DAILY 90 tabs 0RF To lisinopril 10 mg PO BID 180 tabs 1RF Coding Level of Care Code Est Pt Level 4 (75439) Diagnoses Hypertension I10
[2024-07-15 14:40] VITALS: BP 140/82; PULSE 76; O2SAT 98; BMI 29.7
== END 2024-07-15 14:57 | disposition home or self-care (01) ==
LOC: HO.HKA 14:34
PROVIDERS: PCP Internal Medicine; Visit Provider Internal Medicine Hypertension Specialist
DX: I10 Essential (primary) hypertension (principal)
CPT/HCPCS: 99214

== ENCOUNTER → 2024-07-15 14:34 | Outpatient (BNVA) | payer MEDICAID, SELFPAY | PROVIDERS: PCP Internal Medicine; Visit Provider Internal Medicine Hypertension Specialist | DX: I10 Essential (primary) hypertension (principal) | CPT/HCPCS: 99212 ==

== ENCOUNTER 2024-09-24 08:58 | Outpatient (REF) | payer MEDICAID, SELFPAY ==
[2024-09-24 11:42] LABS: Anion Gap 12 (12-20); Blood Urea Nitrogen 29 mg/dL (9-16); Calcium 9.6 mg/dL (8.4-10.2); Carbon Dioxide 27 mmol/L (22-29); Chloride 105 mmol/L (96-108); Estimated Glomerular Filt Rate 55; Glucose Random 118 mg/dL (60-115); Potassium 4.4 mmol/L (3.3-5.1); Sodium 140 mmol/L (135-145)
== END 2024-09-24 08:59 | disposition home or self-care (01) ==
LOC: HO.WFDLDS 08:58
PROVIDERS: Visit Provider Internal Medicine Hypertension Specialist
DX: I10 Essential (primary) hypertension (principal)
CPT/HCPCS: 36415; 80048

== ENCOUNTER 2024-09-29 13:17 | Outpatient (AMB) | payer MEDICAID, SELFPAY ==
--- NOTE | 2024-09-29 13:22 | HO.NEPHOV ---
Vital Signs 09/29/24 13:23 Height 5 ft 11 in Weight 212 lb 8 oz BMI 29.6 BP 140/80 H Blood Pressure Location Lt brachial Position Sitting Pulse 63 Pulse Source Pulse Oximeter Pulse Oximetry (%) 98 Oxygen Delivery Method Room Air Intake Visit Reasons: FU-Conf Training Specialist Required: No Accompanied by: Spouse Allergies No Known Allergies Allergy (Verified 09/29/24 13:22) Medication List - Last Reconciled 09/29/24 by Karl Clancy MD amlodipine 10 mg PO DAILY aripiprazole 10 mg PO DAILY aspirin 81 mg PO DAILY buspirone 7.5 mg PO BID fluoxetine 80 mg PO DAILY isosorbide mononitrate ER 30 mg PO DAILY lisinopril 10 mg PO DAILY lorazepam 1 mg PO PRN melatonin 5 mg PO DAILY metoprolol succinate ER 100 mg PO DAILY multivitamin 1 tab PO DAILY omeprazole 20 mg PO DAILY rosuvastatin 40 mg PO DAILY saw palmetto 160 mg PO DAILY PRN spironolacton-hydrochlorothiaz 25-25 mg 1 tab PO DAILY trazodone 50 mg PO BEDTIME PRN HPI Comments Details: Pleasant 57-year-old man with a history of anxiety and resistant hypertension. He has had hypertension for at least 5-10 years. Currently he is on 4 antihypertensive medications and the blood pressure has been difficult to control. He has been watching his blood pressure at home and this morning blood pressure was 150 2 mm Hg systolic. He was accompanied by his spouse today. According to her he snores at night. No witnessed apnea. He has no shortness of breath no chest pain. No edema. No urinary symptoms. No palpitations. No lightheadedness. He is history of smoking for almost 15 years. He quit smoking about 5 years ago. He continues to we. No history of any alcohol abuse and he quit alcohol several years ago. No history of any illicit drug abuse. He has 1 brother with hypertension his mother has hypertension which seems to be well controlled. 06/25/23; Doing well ; On ALdactazide 25-25 mg QD ;Tolerating well 07/30/23 ;Home BP were e/xcellent. Lowest reading was 107/71 ;He had few episodes of lightheadedness. 09/24/23; Still has some low blood pressure readings at home. Mild increase in serum creatinine to 1.26 10/22/23: Doing well. Home BP excellent ;No lightheadedness. 07/15/24 Home BP marginally elevated- around 140s 09/29/24 59-year-old male presenting with concerns related to blood pressure management. The patient?s blood pressure has been consistently elevated, mostly ranging in the 130 mmHg levels, with some instances reaching as high as 152 mmHg. There have been no occurrences of lightheadedness, nausea, or vomiting which had been partly attributed to the consumption of certain foods during past episodes. Recent hydration levels indicate mild dehydration; thus, the patient is advised to increase fluid intake, particularly in warmer climates, as part of managing his blood pressure. The patient's treatment regimen includes antihypertensive medications such as amlodipine, lisinopril, and metoprolol, with no noted adverse medication effects. Routine monitoring of kidney function and blood pressure remains vital as part of ongoing management efforts to prevent complications associated with hypertension and support overall cardiovascular health [facility] Medical History High cholesterol Dyslipidemia Depression Hypertension Family History Mother Hypertension Myocardial infarct CVA (cerebral vascular accident) TIA (transient ischemic attack) Hypercholesteremia Social History Alcohol intake: former Patient Tobacco Use Status: Former Tobacco user e-Cigarette/Vaping Use: Former Use Physical Exam Vital Signs: Last Vital Signs Pulse 63 09/29/24 13:23 BP 140/80 H 09/29/24 13:23 Pulse Ox 98 09/29/24 13:23 Oxygen Delivery Method Room Air 09/29/24 13:23 BMI result Body Mass Index 29.6 Const General: comfortable Nutritional Appearance: well nourished Orientation/consciousness: patient oriented x3 HEENT Head: No normal to inspection Mouth: moist mucous membranes Neck Neck: Yes supple and Yes no JVD Resp Auscultation: clear to auscultation bilaterally, no rales and rub present Cardio Jugular venous distension: no JVD Palpation: no palpable S3 and no palpable S4 Heart sounds: no rubs GI Palpation (GI): Soft to palpation and nontender Percussion: No Fluid wave present General: Yes no CVA tenderness Back/Spine/Pelvis Back: no CVA tenderness Skin General skin exam: no rashes or lesions noted Neuro General: patient oriented x3 Extrem General: Yes no pedal edema and No clubbing Results Reviewed Nephrology Results: Sodium 140 mmol/L (135-145) 09/24/24 Potassium 4.4 mmol/L (3.3-5.1) 09/24/24 Chloride 105 mmol/L (96-108) 09/24/24 Carbon Dioxide 27 mmol/L (22-29) 09/24/24 BUN 29 mg/dL (9-16) H 09/24/24 Creatinine 1.33 mg/dL (0.5-1.4) 09/24/24 Calcium 9.6 mg/dL (8.4-10.2) 09/24/24 Assessment & Plan Assessment & Plan (1) Hypertension: Code(s): I10 - Essential (primary) hypertension Category: Medical Plan . Middle-aged man with resistant hypertension setting of anxiety. He probably has essential hypertension and he might also have a component of superimposed white coat effect. Anxiety might be playing a role Given the history of snoring I suspect he might even have underlying sleep apnea which could be playing a role in causing resistant hypertension. He has mild CKD. Recent creatinine is 1.2 with EGFR 57 mL/minute. This may be due to altered hemodynamics. Other possibility including hypertensive nephrosclerosis should be considered. Keep Aldactazide . Watch BP at home daily; We might be able to taper some of his anti hypertensives over the next several weeks ;Watch serum sodium for now 07/30/23 Based on home blood pressure readings I will decrease lisinopril from 40 mg down to 30 mg a day. Continue same dose of Aldactazide and amlodipine. Encouraged him to keep monitoring his blood pressure at home. Based on home blood pressure readings or if he has any symptoms of lightheadedness I will further lower lisinopril down to 20 mg. 09/24/23 Blood pressure is well controlled in fact he has few low readings with lightheadedness. Therefore I will decrease lisinopril from 30 mg down to 10 mg a day. Recheck renal panel in next few weeks.Encouraged him to keep monitoring blood pressure at home 02/18/24 Keep current meds ; BP well controlled. Monitor BP at home; Creatinine improved and back to baseline Mild bump was due to hypoperfusion - resolved 3/25/25 ; Increase Lisinopril to 10 mg BID 09/29/24 Essential hypertension: I stressed continued adherence to amlodipine, lisinopril, and metoprolol, with no reported adverse symptoms, maintaining the current regimen. I advised increasing water intake due to mild dehydration found in recent blood work, especially in warmer climates. Regular monitoring of kidney function and blood pressure is crucial in preventing progression to severe renal or cardiac issues. An appointment is scheduled in January for review. The patient knows to contact if blood pressure remains elevated or if concerning symptoms emerge. No changes were made Orders: Orders UA and rflx microscopic 4 Months I10 - Essential (primary) hypertension Basic Metabolic Panel 4 Months I10 - Essential (primary) hypertension Coding Level of Care Code Est Pt Level 4 (03275) Diagnoses Hypertension I10
[2024-09-29 13:23] VITALS: BP 140/80; PULSE 63; O2SAT 98; BMI 29.6
== END 2024-09-29 13:31 | disposition home or self-care (01) ==
LOC: HO.HKA 13:18
PROVIDERS: PCP Internal Medicine; Visit Provider Internal Medicine Hypertension Specialist
DX: I10 Essential (primary) hypertension (principal)
CPT/HCPCS: 99214

== ENCOUNTER → 2024-09-29 13:17 | Outpatient (BNVA) | payer MEDICAID, SELFPAY | PROVIDERS: PCP Internal Medicine; Visit Provider Internal Medicine Hypertension Specialist | DX: I1A.0 Resistant hypertension (principal); F41.9 Anxiety disorder, unspecified; R06.83 Snoring | CPT/HCPCS: 99212 ==

== ENCOUNTER 2024-11-07 07:45 | Outpatient (AMB) | payer MEDICARE, MEDICAID, SELFPAY ==
[2024-11-07 08:15] VITALS: BP 140/80; PULSE 52; BMI 29.5
--- NOTE | 2024-11-07 08:15 | MHC.OFFVIS ---
Vital Signs 11/07/24 08:15 Height 5 ft 11 in Weight 211 lb 10.3 oz BMI 29.5 BP 140/80 H Blood Pressure Location Lt brachial Position Sitting Pulse 52 Pulse Source Monitor Intake Visit Reasons: r/s from [id number] [facility] Ux Lead Required: No Director Of Family Service Center: Director Of Family Service Center Present Allergies No Known Allergies Allergy (Verified 11/07/24 08:17) Medication List - Last Reconciled 11/07/24 by Kaur Grover, CONRADO-C amlodipine 10 mg PO DAILY aripiprazole 10 mg PO DAILY aspirin 81 mg PO DAILY buspirone 15 mg PO BID fluoxetine 80 mg PO DAILY isosorbide mononitrate ER 30 mg PO DAILY lisinopril 10 mg PO DAILY lorazepam 1 mg PO PRN melatonin 5 mg PO DAILY metoprolol succinate ER 100 mg PO DAILY multivitamin 1 tab PO DAILY omeprazole 20 mg PO DAILY rosuvastatin 40 mg PO DAILY saw palmetto 160 mg PO DAILY PRN spironolacton-hydrochlorothiaz 25-25 mg 1 tab PO DAILY trazodone 100 mg PO BEDTIME PRN HPI HPI r/s from [id number] hot: Details: Shiraz is a 59-year-old male with past medical history of hypertension, hyperlipidemia, anxiety, abnormal EKG, nonobstructive CAD who presents for follow-up. Today he reports that he has been feeling good since last visit, 11/05/2023. He denies any chest discomfort at rest or with activity. He denies shortness of breath, palpitations, lightheadedness, presyncope, syncope, PND, orthopnea or edema. He continues to have issues with anxiety and is following with a psychiatrist and counselor. He states his blood pressure have been well controlled. Home pressure typically ranges 130 over 70s. He tolerates normal ADLs, walks routinely and able to climb stairs without difficulty. is present. [facility] Medical History Coronary artery disease High cholesterol Dyslipidemia Depression Hypertension Family History Mother Hypertension Myocardial infarct CVA (cerebral vascular accident) TIA (transient ischemic attack) Hypercholesteremia Social History Alcohol intake: former Patient Tobacco Use Status: Former Tobacco user e-Cigarette/Vaping Use: Former Use Review of Systems Const Details: anxiety issues All systems reviewed & are unremarkable except as noted in HPI and below ENT Denies dizziness Card Denies chest pain, Denies chest pain at rest, Denies chest pain with activity, Denies rapid heart rate, Denies pedal edema, Denies edema, Denies leg edema, Denies lightheadedness, Denies palpitations, Denies dyspnea, Denies dyspnea on exertion and Denies orthopnea Resp Denies cough, Denies dyspnea and Denies dyspnea on exertion GI Denies hematochezia and Denies change in stool character Musc Denies abnormal gait, Reports limited range of motion, Denies muscle cramps, Denies muscle weakness, Denies numbness, Denies radiating pain into limb, Denies stiffness and Denies tingling Neuro Denies abnormal gait, Denies dizziness, Denies numbness and Denies tingling Endo Denies palpitations Physical Exam Vital Signs: BMI result Body Mass Index 29.5 Const General: cooperative, healthy appearing, comfortable and no acute distress Orientation/consciousness: patient oriented x3 Neck Neck: Yes normal visual inspection and Yes no JVD Resp Effort & Inspection: normal respiratory effort Auscultation: clear to auscultation bilaterally, no crackles, no rales, no rhonchi and no wheezes Cardio Jugular venous distension: no JVD Rate: regular rate Rhythm: regular rhythm Heart sounds: S1 normal heart sound present, S2 normal heart sound present, no murmurs and no rubs Neuro General: patient oriented x3 Extrem General: Yes normal to inspection, No no pedal edema and No calf tenderness Psych Appearance: grossly normal Mental Status: mental status grossly normal Speech and movement: Normal speech and movement present Office Procedures EKG Details: Today, read by me, Sinus rhythm with ST abnormality V2-V3, same as prior, rate 52, Qtc 438ms [id number], Complete Assessment & Plan Assessment & Plan (1) Coronary artery disease: Comment: CTA of coronary 10/24/2023, left main normal, lad less than 25% stenosis, D1 25-49% stenosis, left circumflex mid 25-49% stenosis, RCA mid to distal 25-49% stenosis Code(s): I25.10 - Atherosclerotic heart disease of [place] coronary artery without angina pectoris Category: Medical Plan: Nonobstructive coronary artery disease as seen on CTA of coronary arteries on 10/24/23. Last echocardiogram on 06/28/2023 showing EF 60-65%, normal valves, basal inferior and basal inferior septal hypokinetic. A exercise nuclear stress test done on 07/12/2023 with good exercise tolerance, no chest discomfort, EKG abnormalities more prominent during exercise with normal myocardial perfusion imaging. His EKG today showing sinus bradycardia, AST abnormality V2 and V3, same as prior EKGs, rate 52. No anginal symptoms. Continue med management for stable nonobstructive CAD including aspirin indefinitely. Continue rosuvastatin with ideal LDL goal less than 70. Continue metoprolol. Continue risk factor modification. Following with Nephrology for hypertension. Signs and symptoms of angina reviewed with him. Cardiology follow-up 1 year, sooner if needed. (2) Abnormal EKG: Code(s): R94.31 - Abnormal electrocardiogram [ECG] [EKG] Category: Medical Plan: As above, stable (3) Abnormal echocardiography findings without diagnosis: Code(s): R93.1 - Abnormal findings on diagnostic imaging of heart and coronary circulation Category: Medical Plan: Wall motion abnormality seen on echocardiogram. CTA as above confirming nonobstructive disease. (4) Hypertension: Code(s): I10 - Essential (primary) hypertension Category: Medical Plan: Blood pressure goal less than 130/80. History of resistant hypertension in the setting of anxiety, followed by Nephrology. Blood pressure today 140/80. He does have anxiety coming to office visits. Home blood pressures reported as being 130s over 70s. No med changes made at this time. Plan Time spent on chart review, documentation, interview and assessment Coding Level of Care Code Est Pt Level 4 (59711) Complex EM visit Add On G2211 Diagnoses Coronary artery disease I25.10 Abnormal EKG R94.31 Abnormal echocardiography findings without diagnosis R93.1 Hypertension I10 CPT Codes EKG - CPT: [id number], Complete ([id number]) Time Spent (min) 32
== END 2024-11-07 08:50 | disposition home or self-care (01) ==
PROVIDERS: PCP Internal Medicine; Visit Provider Nurse Practitioner Family
DX: I25.10 Atherosclerotic heart disease of native coronary artery without angina pectoris (principal); R94.31 Abnormal electrocardiogram [ECG] [EKG]; R93.1 Abnormal findings on diagnostic imaging of heart and coronary circulation; I10 Essential (primary) hypertension
CPT/HCPCS: 93010; 99214; G2211

== ENCOUNTER → 2024-11-07 07:45 | Outpatient (BNVA) | payer MEDICAID, SELFPAY | PROVIDERS: PCP Internal Medicine; Visit Provider Nurse Practitioner Family | DX: I10 Essential (primary) hypertension (principal); E78.5 Hyperlipidemia, unspecified; F41.9 Anxiety disorder, unspecified; R94.31 Abnormal electrocardiogram [ECG] [EKG]; I25.10 Atherosclerotic heart disease of native coronary artery without angina pectoris; R93.1 Abnormal findings on diagnostic imaging of heart and coronary circulation | CPT/HCPCS: 93005; 99212 ==

== ENCOUNTER 2025-01-01 13:31 | Outpatient (REF) | payer MEDICARE, MEDICAID, SELFPAY ==
[2025-01-01 17:56] LABS: Alanine Aminotransferase 41 U/L (0-40); Albumin Level 4.8 g/dL (3.5-5.0); Alkaline Phosphatase 83 U/L (39-117); Anion Gap 15 (12-20); Aspartate Amino Transferase 26 U/L (5-37); Blood Urea Nitrogen 25 mg/dL (9-16); Calcium 9.4 mg/dL (8.4-10.2); Carbon Dioxide 26 mmol/L (22-29); Chloride 103 mmol/L (96-108); Cholesterol 143 mg/dL (<200); Estimated Glomerular Filt Rate > 60; HDL Cholesterol 52 mg/dL (>40); Potassium 4.9 mmol/L (3.3-5.1); Sodium 139 mmol/L (135-145); Total Protein 7.4 g/dL (6.5-8.0); Triglycerides 49 mg/dL (<150)
[2025-01-01 18:19] LABS: Prostate Specific Antigen 0.73 ng/mL (<0.05-4.0)
== END 2025-01-01 13:32 | disposition home or self-care (01) ==
LOC: HO.WFDLDS 13:31
PROVIDERS: Visit Provider Internal Medicine
DX: Z12.5 Encounter for screening for malignant neoplasm of prostate (principal); I10 Essential (primary) hypertension; E78.00 Pure hypercholesterolemia, unspecified; H54.61 Unqualified visual loss, right eye, normal vision left eye; Z72.0 Tobacco use
CPT/HCPCS: 36415; 80053; 80061; 84153

== ENCOUNTER 2025-01-21 13:24 | Outpatient (REF) | payer MEDICARE, MEDICAID, SELFPAY ==
[2025-01-21 18:20] LABS: Anion Gap 13 (12-20); Blood Urea Nitrogen 16 mg/dL (9-16); Calcium 9.3 mg/dL (8.4-10.2); Carbon Dioxide 24 mmol/L (22-29); Chloride 106 mmol/L (96-108); Estimated Glomerular Filt Rate > 60; Potassium 4.5 mmol/L (3.3-5.1); Sodium 138 mmol/L (135-145)
[2025-01-21 19:54] LABS: Appearance Urine Clear; Glucose Urine UA Negative (Negative); PH 7.5 (5.0-9.0); Specific Gravity - Urine 1.010 (1.005-1.025)
== END 2025-01-21 13:25 | disposition home or self-care (01) ==
LOC: HO.WFDLDS 13:24
PROVIDERS: Visit Provider Internal Medicine Hypertension Specialist
DX: I10 Essential (primary) hypertension (principal)
CPT/HCPCS: 36415; 80048; 81003

== ENCOUNTER 2025-01-27 11:21 | Outpatient (AMB) | payer MEDICAID, SELFPAY ==
[2025-01-27 11:23] VITALS: BP 120/78; PULSE 63; O2SAT 97
--- NOTE | 2025-01-27 11:23 | HO.NEPHOV_ITS ---
Vital Signs 01/27/25 11:23 Height 5 ft 11 in Weight 215 lb BMI 30.0 BP 120/78 Blood Pressure Location Lt brachial Position Sitting Pulse 63 Pulse Source Pulse Oximeter Pulse Oximetry (%) 97 Oxygen Delivery Method Room Air Intake Visit Reasons: 4 MO FU confirmed Workers Compensation Claims Assistant Required: No Accompanied by: Spouse Allergies No Known Allergies Allergy (Verified 01/27/25 11:24) Medication List - Last Reconciled 01/27/25 by Karl Clancy MD amlodipine 10 mg PO DAILY aripiprazole 10 mg PO DAILY aspirin 81 mg PO DAILY buspirone 15 mg PO BID fluoxetine 80 mg PO DAILY isosorbide mononitrate ER 30 mg PO DAILY lisinopril 10 mg PO DAILY lorazepam 1 mg PO PRN melatonin 5 mg PO DAILY metoprolol succinate ER 100 mg PO DAILY multivitamin 1 tab PO DAILY omeprazole 20 mg PO DAILY rosuvastatin 40 mg PO DAILY saw palmetto 160 mg PO DAILY PRN spironolacton-hydrochlorothiaz 25-25 mg 1 tab PO DAILY trazodone 100 mg PO BEDTIME PRN HPI Comments Details: Pleasant 57-year-old man with a history of anxiety and resistant hypertension. He has had hypertension for at least 5-10 years. Currently he is on 4 antihypertensive medications and the blood pressure has been difficult to control. He has been watching his blood pressure at home and this morning blood pressure was 150 2 mm Hg systolic. He was accompanied by his spouse today. According to her he snores at night. No witnessed apnea. He has no shortness of breath no chest pain. No edema. No urinary symptoms. No palpitations. No lightheadedness. He is history of smoking for almost 15 years. He quit smoking about 5 years ago. He continues to weep. No history of any alcohol abuse and he quit alcohol several years ago. No history of any illicit drug abuse. He has 1 brother with hypertension his mother has hypertension which seems to be well controlled. 06/25/23; Doing well ; On ALdactazide 25-25 mg QD ;Tolerating well 07/30/23 ;Home BP were e/xcellent. Lowest reading was 107/71 ;He had few episodes of lightheadedness. 09/24/23; Still has some low blood pressure readings at home. Mild increase in serum creatinine to 1.26 10/22/23: Doing well. Home BP excellent ;No lightheadedness. 07/15/24 Home BP marginally elevated- around 140s 09/29/24 59-year-old male presenting with concerns related to blood pressure management. The patient?s blood pressure has been consistently elevated, mostly ranging in the 130 mmHg levels, with some instances reaching as high as 152 mmHg. There have been no occurrences of lightheadedness, nausea, or vomiting which had been partly attributed to the consumption of certain foods during past episodes. Recent hydration levels indicate mild dehydration; thus, the patient is advised to increase fluid intake, particularly in warmer climates, as part of managing his blood pressure. The patient's treatment regimen includes antihypertensive medications such as amlodipine, lisinopril, and metoprolol, with no noted adverse medication effects. Routine monitoring of kidney function and blood pr essure remains vital as part of ongoing management efforts to prevent complications associated with hypertension and support overall cardiovascular health 01/27/25 - The patient is a 59-year-old male presenting for a follow-up on hypertension management - Hypertension managed with amlodipine, lisinopril, spironolactone, hydrochlorothiazide, and metoprolol. - No recent medication changes or side effects reported. - Weight currently at 215 pounds, previously 224 pounds two years ago. - Cardiovascular follow-up due to abnormal EKG; no immediate follow-up needed for one year. [facility] Medical History Coronary artery disease High cholesterol Dyslipidemia Depression Hypertension Family History Mother Hypertension Myocardial infarct CVA (cerebral vascular accident) TIA (transient ischemic attack) Hypercholesteremia Social History Alcohol intake: former Patient Tobacco Use Status: Former Tobacco user e-Cigarette/Vaping Use: Former Use Physical Exam Vital Signs: Last Vital Signs Pulse 63 01/27/25 11:23 BP 120/78 01/27/25 11:23 Pulse Ox 97 01/27/25 11:23 Oxygen Delivery Method Room Air 01/27/25 11:23 BMI result Body Mass Index 30.0 Const General: comfortable Nutritional Appearance: well nourished Orientation/consciousness: patient oriented x3 HEENT Head: No normal to inspection Mouth: moist mucous membranes Neck Neck: Yes supple and Yes no JVD Resp Auscultation: clear to auscultation bilaterally and no rales Cardio Jugular venous distension: no JVD Palpation: no palpable S3 and no palpable S4 Heart sounds: no rubs GI Palpation (GI): Soft to palpation and nontender Percussion: No Fluid wave present General: Yes no CVA tenderness Back/Spine/Pelvis Back: no CVA tenderness Skin General skin exam: no rashes or lesions noted Neuro General: patient oriented x3 Extrem General: Yes no pedal edema and No clubbing Results Reviewed Nephrology Results: Sodium, (135-145) 138 mmol/L 01/21/25 Potassium, (3.3-5.1) 4.5 mmol/L 01/21/25 Chloride, (96-108) 106 mmol/L 01/21/25 Carbon Dioxide, (22-29) 24 mmol/L 01/21/25 BUN, (9-16) 16 mg/dL 01/21/25 Creatinine, (0.5-1.4) 1.11 mg/dL 01/21/25 Calcium, (8.4-10.2) 9.3 mg/dL 01/21/25 Urine Protein, (Neg-Trace) Negative mg/dL 01/21/25 Renal US 06/07/23 Assessment & Plan Assessment & Plan (1) Hypertension: Code(s): I10 - Essential (primary) hypertension Category: Medical Plan . Middle-aged man with resistant hypertension setting of anxiety. He probably has essential hypertension and he might also have a component of superimposed white coat effect. Anxiety might be playing a role Given the history of snoring I suspect he might even have underlying sleep apnea which could be playing a role in causing resistant hypertension. He has mild CKD. Recent creatinine is 1.2 with EGFR 57 mL/minute. This may be due to altered hemodynamics. Other possibility including hypertensive nephrosclerosis should be considered. Keep Aldactazide . Watch BP at home daily; We might be able to taper some of his anti hypertensives over the next several weeks ;Watch serum sodium for now 07/30/23 Based on home blood pressure readings I will decrease lisinopril from 40 mg down to 30 mg a day. Continue same dose of Aldactazide and amlodipine. Encouraged him to keep monitoring his blood pressure at home. Based on home blood pressure readings or if he has any symptoms of lightheadedness I will further lower lisinopril down to 20 mg. 09/24/23 Blood pressure is well controlled in fact he has few low readings with lightheadedness. Therefore I will decrease lisinopril from 30 mg down to 10 mg a day. Recheck renal panel in next few weeks.Encouraged him to keep monitoring blood pressure at home 02/18/24 Keep current meds ; BP well controlled. Monitor BP at home; Creatinine improved and back to baseline Mild bump was due to hypoperfusion - resolved 07/15/24 ; Increase Lisinopril to 10 mg BID 09/29/24 Essential hypertension: I stressed continued adherence to amlodipine, lisinopril, and metoprolol, with no reported adverse symptoms, maintaining the current regimen. I advised increasing water intake due to mild dehydration found in recent blood work, especially in warmer climates. Regular monitoring of kidney function and blood pressure is crucial in preventing progression to severe renal or cardiac issues. An appointment is scheduled in January for review. The patient knows to contact if blood pressure remains elevated or if concerning symptoms emerge. No changes were made 01/27/25 BP well controlled - Continue current antihypertensive regimen. - Monitor blood pressure at home; maintain readings between 120-130 mmHg systolic. - Follow-up in one year unless symptoms occur. Orders: Orders UA and rflx microscopic 1 Year I10 - Essential (primary) hypertension Basic Metabolic Panel 1 Year I10 - Essential (primary) hypertension Complete Blood Count no Diff 1 Year I10 - Essential (primary) hypertension Creatinine Urine 1 Year I10 - Essential (primary) hypertension Total Protein Urine Random 1 Year I10 - Essential (primary) hypertension Coding Level of Care Code Est Pt Level 4 (69726) Diagnoses Hypertension I10
== END 2025-01-27 11:33 | disposition home or self-care (01) ==
LOC: HO.HKA 11:21
PROVIDERS: PCP Internal Medicine; Visit Provider Internal Medicine Hypertension Specialist
DX: I10 Essential (primary) hypertension (principal)
CPT/HCPCS: 99214

== ENCOUNTER → 2025-01-27 11:21 | Outpatient (BNVA) | payer MEDICAID, SELFPAY | PROVIDERS: PCP Internal Medicine; Visit Provider Internal Medicine Hypertension Specialist | DX: I10 Essential (primary) hypertension (principal) | CPT/HCPCS: 99212 ==